=== PATIENT | female | born 2005 | race Caucasian/White ===

== ENCOUNTER 2025-01-25 04:39 | Emergency (ER) | payer OTHER, SELFPAY ==
[2025-01-25 04:43] VITALS: BP 126/82
--- NOTE | 2025-01-25 05:09 | ED.GENMED ---
History of Present Illness
<Britni Liu PA-C - Last Filed: 01/25/25 22:57>
General
Chief Complaint: Headache
Source: patient
Exam Limitations: none
Time Seen by Provider: 01/25/25 05:05
Nursing documentation reviewed up to this point in time: agreed with
History of Present Illness
History of Present Illness:
The patient is a 19-year-old female who presents with a persistent headache that started approximately 2 days ago. She describes the headache as throbbing and states that it has been continuous, with some fluctuation in intensity. The headache
briefly subsides with medications such as ibuprofen but does not completely resolve. She reports that the headache was present upon waking and describes today as particularly severe, stating it �woke me from sleep.� The patient denies any history of
similar headaches in the past. Additionally, the patient has experienced fever, with the highest recorded temperature being 101.7�F while on ibuprofen; this illness has been going on for the past week. She was seen at urgent care a week ago.
Currently, she reports a temperature of 99.7�F but no other fever. She has a new onset cough, but no associated vomiting, sore throat, or runny nose. The patient also reports mild neck pain that worsens with forward flexion. She denies dizziness,
lightheadedness, visual changes, weakness on one side of the body vs the other.
Review of Systems
<Britni Liu PA-C - Last Filed: 01/25/25 22:57>
Review of Systems
All Other Systems: ROS reviewed and negative except as documented in HPI and ROS
Phy Exam
<Britni Liu PA-C - Last Filed: 01/25/25 22:57>
Physical Exam
Physical Exam:
General: Patient is well appearing and in no acute distress; non-toxic
Skin: Warm and dry, no rashes or lesions
Head: Normocephalic, atraumatic
Eyes: Sclera non-icteric. EOMs intact.
Neck: No midline spinal tenderness to palpation, no nuchal rigidity
Cardiac: Regular rate and rhythm, no murmurs
Peripheral Vascular: No lower extremity swelling or edema
Pulm: Normal respiratory effort, no wheezes, rales, or rhonchi
Abdomen: No abdominal tenderness to palpation
Neuro: CN II-XII intact, no focal neurologic deficits. Normal finger-nose, [id number]. Negative Kernig sign, negative Brudzinski sign.
Psychiatric: Appropriate mood and affect.
Course
<Britni Liu PA-C - Last Filed: 01/25/25 22:57>
Orders/Labs/Results
Orders:
Orders
01/25/25 05:24
CT Head W/o Iv Contrast Urgent
Comment:
Reason For Exam: daily persistent headache
01/25/25 05:25
Diphenhydramine [Benadryl] 12.5 mg IV NOW STA
Metoclopramide [Reglan] 10 mg IV NOW STA
01/25/25 05:26
0.9% Sodium Chloride 500 ml [Nss] 500 ml IV BOLUS
01/25/25 05:29
Add On- LAB Urgent
Tests Added?: beta hcg qual
01/25/25 05:44
COVID-19 Antigen Urgent
Source: Nasal Swab
Complete Blood Count/With Diff Urgent
Comprehensive Metabolic Panel Urgent
HCG, Serum Qualitative Screen Urgent
Comment: ADD ON
Influenza A+B Rapid Molecular Urgent
SIRENA Source: Nasal Swab
Specimen Description:
01/25/25 05:47
Ketorolac [Toradol] 15 mg IV NOW STA
01/25/25 07:01
Magnesium Sulfate 2 Gram/50 ml [Magnesium Sulfate] 2 gram in 50 ml IV NOW
01/25/25 07:25
Valproate Sodium [Depacon] 500 mg 0.9% Sodium Chloride 50 ml [Nss] 50 ml IV NOW
01/25/25 07:30
Monotest Urgent
Abnormal Lab Results
01/25/25
05:44
MCHC 32.3 L g/dL
(33.0-37.0)
Abs Immat Gran (auto) 0.1 H 10^3/uL
(0-0.05)
Absolute Neuts (auto) 7.2 H 10^3/uL
(1.4-6.5)
Absolute Monos (auto) 1.1 H 10^3/uL
(0.1-0.6)
Lymphocytes % 19.7 L %
(20.5-51.1)
Monocytes % 10.1 H %
(1.7-9.3)
ALT 86 H U/L
(0-35)
Alkaline Phosphatase 131 H U/L
(38-126)
01/25/25 05:44
01/25/25 05:44
Vital Signs
Initial and Last Documented VS:
Initial Vital Signs
Temp Pulse Resp BP Pulse Ox
99.7 F 115 20 126/82 97
01/25/25 04:43 01/25/25 04:43 01/25/25 04:43 01/25/25 04:43 01/25/25 04:43
Last Documented Vital Signs
Temp Pulse Resp BP Pulse Ox
99.1 F 78 16 121/81 98
01/25/25 06:51 01/25/25 09:36 01/25/25 09:36 01/25/25 09:36 01/25/25 09:36
<Halima Webster MD - Last Filed: 01/25/25 07:06>
Orders/Labs/Results
Orders:
Orders
01/25/25 05:24
CT Head W/o Iv Contrast Urgent
Comment:
Reason For Exam: daily persistent headache
01/25/25 05:25
Diphenhydramine [Benadryl] 12.5 mg IV NOW STA
Metoclopramide [Reglan] 10 mg IV NOW STA
01/25/25 05:26
0.9% Sodium Chloride 500 ml [Nss] 500 ml IV BOLUS
01/25/25 05:29
Add On- LAB Urgent
Tests Added?: beta hcg qual
01/25/25 05:44
COVID-19 Antigen Urgent
Source: Nasal Swab
Complete Blood Count/With Diff Urgent
Comprehensive Metabolic Panel Urgent
HCG, Serum Qualitative Screen Urgent
Comment: ADD ON
Influenza A+B Rapid Molecular Urgent
SIRENA Source: Nasal Swab
Specimen Description:
01/25/25 05:47
Ketorolac [Toradol] 15 mg IV NOW STA
01/25/25 07:01
Magnesium Sulfate 2 Gram/50 ml [Magnesium Sulfate] 2 gram in 50 ml IV NOW
01/25/25 07:25
Valproate Sodium [Depacon] 500 mg 0.9% Sodium Chloride 50 ml [Nss] 50 ml IV NOW
01/25/25 07:30
Monotest Urgent
Abnormal Lab Results
01/25/25
05:44
MCHC 32.3 L g/dL
(33.0-37.0)
Abs Immat Gran (auto) 0.1 H 10^3/uL
(0-0.05)
Absolute Neuts (auto) 7.2 H 10^3/uL
(1.4-6.5)
Absolute Monos (auto) 1.1 H 10^3/uL
(0.1-0.6)
Lymphocytes % 19.7 L %
(20.5-51.1)
Monocytes % 10.1 H %
(1.7-9.3)
ALT 86 H U/L
(0-35)
Alkaline Phosphatase 131 H U/L
(38-126)
01/25/25 05:44
01/25/25 05:44
Vital Signs
Initial and Last Documented VS:
Initial Vital Signs
Temp Pulse Resp BP Pulse Ox
99.7 F 115 20 126/82 97
01/25/25 04:43 01/25/25 04:43 01/25/25 04:43 01/25/25 04:43 01/25/25 04:43
Last Documented Vital Signs
Temp Pulse Resp BP Pulse Ox
99.1 F 78 16 121/81 98
01/25/25 06:51 01/25/25 09:36 01/25/25 09:36 01/25/25 09:36 01/25/25 09:36
<Blas Guzman PA-C - Last Filed: 01/25/25 12:35>
Orders/Labs/Results
Orders:
Orders
01/25/25 05:24
CT Head W/o Iv Contrast Urgent
Comment:
Reason For Exam: daily persistent headache
01/25/25 05:25
Diphenhydramine [Benadryl] 12.5 mg IV NOW STA
Metoclopramide [Reglan] 10 mg IV NOW STA
01/25/25 05:26
0.9% Sodium Chloride 500 ml [Nss] 500 ml IV BOLUS
01/25/25 05:29
Add On- LAB Urgent
Tests Added?: beta hcg qual
01/25/25 05:44
COVID-19 Antigen Urgent
Source: Nasal Swab
Complete Blood Count/With Diff Urgent
Comprehensive Metabolic Panel Urgent
HCG, Serum Qualitative Screen Urgent
Comment: ADD ON
Influenza A+B Rapid Molecular Urgent
SIRENA Source: Nasal Swab
Specimen Description:
01/25/25 05:47
Ketorolac [Toradol] 15 mg IV NOW STA
01/25/25 07:01
Magnesium Sulfate 2 Gram/50 ml [Magnesium Sulfate] 2 gram in 50 ml IV NOW
01/25/25 07:25
Valproate Sodium [Depacon] 500 mg 0.9% Sodium Chloride 50 ml [Nss] 50 ml IV NOW
01/25/25 07:30
Monotest Urgent
Abnormal Lab Results
01/25/25
05:44
MCHC 32.3 L g/dL
(33.0-37.0)
Abs Immat Gran (auto) 0.1 H 10^3/uL
(0-0.05)
Absolute Neuts (auto) 7.2 H 10^3/uL
(1.4-6.5)
Absolute Monos (auto) 1.1 H 10^3/uL
(0.1-0.6)
Lymphocytes % 19.7 L %
(20.5-51.1)
Monocytes % 10.1 H %
(1.7-9.3)
ALT 86 H U/L
(0-35)
Alkaline Phosphatase 131 H U/L
(38-126)
01/25/25 05:44
01/25/25 05:44
Vital Signs
Initial and Last Documented VS:
Initial Vital Signs
Temp Pulse Resp BP Pulse Ox
99.7 F 115 20 126/82 97
01/25/25 04:43 01/25/25 04:43 01/25/25 04:43 01/25/25 04:43 01/25/25 04:43
Last Documented Vital Signs
Temp Pulse Resp BP Pulse Ox
99.1 F 78 16 121/81 98
01/25/25 06:51 01/25/25 09:36 01/25/25 09:36 01/25/25 09:36 01/25/25 09:36
Magedlt;Britni Liu PA-C - Last Filed: 01/25/25 22:57>
MDM/Problems Addressed
Differential Diagnosis Includes:
Differential includes post viral syndrome, migraine headache, meningitis, mononucleosis, tension headache
MDM/Problems Addressed:
19-year-old female presents to the ER today with concerns of a headache for the past 2 days and fevers for the past week. She reports that she started to have a daily fever associated with some coughing but no other symptoms. She saw urgent care
and was diagnosed with a virus and discharged. She has been doing ibuprofen and acetaminophen to manage her fever. She reports that nothing is helping a headache. On arrival to the ER, she is afebrile. She is well-appearing. She has no focal
neural deficits. No meningismus. Lab work unremarkable. CT scan of the head negative. She had no improvement with migraine cocktail. Spoke to patient regarding possible LP to evaluate for pharyngitis, will hold off at this time. Will trial
magnesium and valproic acid for headache. Case signed out to Dontae XAVIER pending reassessment.
Chronic conditions affecting care:
N/A
<Britni Liu PA-C - Last Filed: 01/25/25 22:57>
*Pulse Oximetry
SaO2: 97
Oxygen Mode of Delivery: Room air
<Blas Guzman PA-C - Last Filed: 01/25/25 12:35>
*Pulse Oximetry
Patient hypoxic: no
*Critical Care Note
Total Time (30-74mins, 75-104mins- exclusive of procedures): Not Applicable
<Blas Guzman PA-C - Last Filed: 01/25/25 12:35>
Update Note
Update Note:
Assumed care of patient from Britni Liu PA-C at shift change. Patient with viral throat leading to severe headache over the weekend. Low clinical suspicion for meningitis based on exam, workup unrevealing thus far. No improvement with
Toradol and Reglan. Will be administered magnesium and IV valproate.
0920: Patient reassessed after meds placed complaining of 7 out of 10 headache. Offered admission for continued headache treatment but she declines. She has at this time free unrestricted neck range of motion and no signs of meningitis clinically.
Will prescribe supportive care and discharge home
ED Attending Note
<Britni Liu PA-C - Last Filed: 01/25/25 22:57>
-
Portions of this chart may have been created with voice recognition software.� Occasional wrong word or��sound alike� substitutions may have occurred due to the inherent limitations of voice recognition software.
<Halima Webster MD - Last Filed: 01/25/25 07:06>
ED Attending Note
Patient seen and examined by attending physician: Yes
I performed the substantive portion of visit, reviewed & personally made and approve the management plan that is documented in note by myself or MYRANDA.: Yes
ED Attending Note:
Patient appears nontoxic and well. no photophobia. conversational. moves neck around freely. no meningsmus
will try valproic acid and mag for headache relief
Discharge Plan
Departure
Patient Disposition: Home (Routine Discharge)
Date of Disposition: 01/25/25
Time of Disposition: 09:
Patient with high blood pressure during this ER visit?: Yes
Condition: Good
Discharge Problem:
Post viral syndrome, Headache
Instructions: Headache, Adult (DC), BLOOD PRESSURE
Prescriptions:
New
ketorolac 10 mg tablet
10 mg PO Q8H PRN (Reason: headache) Qty: 12 0RF
Referrals:
Mary Pond MD [Family Provider, Family Practice]
Activity Restrictions/Additional Instructions:
Please follow-up with your primary care provider.
Do not combine the ketorolac I prescribed you with over the counter ibuprofen (Motrin, Advil) however you may take acetaminophen (tylenol).
PLEASE RETURN TO THE ER SHOULD YOU DEVELOP CHEST PAIN, SHORTNESS OF BREATH, INTRACTABLE NAUSEA OR VOMITING, NECK PAIN, DIZZINESS, RASH, OR ANY OTHER SIGNS OR SYMPTOMS WORRISOME TO YOU.
Interventions
Interventions:
*Risk Screen - Suicide Last Done: 01/25/25 04:41
*General Assessment Last Done: 01/25/25 04:41
*Neglect/Abuse Screening Last Done: 01/25/25 07:39
*ED- Fall Risk Assessment Last Done: 01/25/25 05:48
*ED COVID-19 Vaccine History Last Done: 01/25/25 05:48
*ED Influenza Vaccine History Last Done: 01/25/25 05:48
*Nursing Disposition Last Done: 01/25/25 09:36
ED- Neurological Assessment Last Done: 01/25/25 05:33
Discharge Date and Time
Discharge Date/Time: 01/25/25 09:37
Print Language: ICELANDIC
[2025-01-25 05:28] VITALS: BP 111/65
[2025-01-25] MEDS: BENADRYL 12.5 MG IV (05:41)
[2025-01-25] MEDS: NSS 500 IV (05:41)
[2025-01-25] MEDS: REGLAN 10 MG IV (05:42)
[2025-01-25 05:48] VITALS: BMI 25.1
[2025-01-25] MEDS: TORADOL 15 MG IV (05:50)
[2025-01-25 05:59] LABS: Hematocrit 37.5 % (37.0-47.0); Hemoglobin 12.1 g/dL (12.0-16.0); Mean Corp Hgb Conc. 32.3 g/dL (33.0-37.0); Mean Corpuscular Volume 84.1 fL (81.0-99.0); Nucleated Red Blood Cells % 0 %; Platelet Count 347 10^3/uL (130-400); Red Cell Dist. Width 14.0 % (11.5-14.5)
[2025-01-25 06:09] LABS: HCG, Serum Qualitative Screen Negative
[2025-01-25 06:10] LABS: COVID-19 Antigen Negative (Negative)
[2025-01-25 06:12] LABS: ALT (SGPT) 86 U/L (0-35); AST (SGOT) 34 U/L (14-36); Albumin 4.4 g/dl (3.5-5.0); Alkaline Phosphatase 131 U/L (38-126); Blood Urea Nitrogen 14 mg/dl (7-17); Calcium 9.1 mg/dl (8.4-10.2); Carbon Dioxide 24 mmol/L (22-30); Chloride 106 mmol/L (98-107); Estimated Creatinine Clearance 95 ml/min; Glucose 99 mg/dl (70-99); Potassium 3.9 mmol/L (3.5-5.1); Sodium 140 mmol/L (135-145); Total Protein 7.8 g/dl (6.3-8.2); eGFR > 60.00
[2025-01-25 06:51] VITALS: BP 111/69
[2025-01-25] MEDS: MAGNESIUM SULFATE 50 IV (07:26)
[2025-01-25] MEDS: DEPACON 55 MG IV (08:06)
[2025-01-25 09:36] VITALS: BP 121/81
== END 2025-01-25 09:37 | disposition home or self-care (01) ==
LOC: EMR 04:39
PROVIDERS: Physician Assistant; EMERGENCY PHYSICIAN Emergency Medicine; FAMILY PHYSICIAN Family Medicine
DX: G93.31 Postviral fatigue syndrome (principal); R03.0 Elevated blood-pressure reading, without diagnosis of hypertension
CPT/HCPCS: 99284; 96365; 96375 ×4; 96361; 70450; 80053; 84703; 85025; 86308; 87502; 87811

== ENCOUNTER 2025-01-26 18:33 | Inpatient (IN) | payer OTHER, SELFPAY ==
[2025-01-26] VITALS (11 sets, daily range): BP systolic 110–138; BP diastolic 68–90; BMI 24.6
--- NOTE | 2025-01-26 09:29 | ED.GENMED ---
History of Present Illness
<Nhi Wing MD, Resident - Last Filed: 01/26/25 19:01>
General
Chief Complaint: Fever
Source: patient
Exam Limitations: none
Time Seen by Provider: 01/26/25 09:03
History of Present Illness
History of Present Illness:
27-year-old female with no significant past medical history back to the ER for ongoing fevers and headache. She was seen yesterday for a headache and fever that started last SaturdayJan 17. She started with generalized weakness, achiness, diffuse
joint pain, and fever. She later developed a headache that got persistently worse and became constant. It waxed and waned in severity but consistently present. She described the pain an 8-9/10 in severity at its worst associated with on and off left
sided neck pain. It is worse with flexion and in certain positions. It slightly improves with Tylenol and ibuprofen, but marginally. She takes it on a regular basis to prevent worsening of symptoms. She has no history of migraines or headaches and
has not had anything similar. She endorses some slight nausea when the headaches get severe, but no vomiting. She does endorse some tinnitus and now pain behind her eyes in the last two days. There is some discomfort moving her eyes quickly. She
denies any chest pain, heart palpitations, SOB, runny nose, sore throat, sneezing, rash, focal weakness. Last dose of ketorolac was 3am this morning because her headache woke her up from sleep. She stated she was febrile at that time. She went to
back to bed and came back to ED around 7am this morning.
In the ED on 01/25, CBC, non-con head CT, flu, covid all unremarkable for acute cause. She was provided magnesium and valproic acid which did not help significantly. She was sent home with ketorolac which also did not help.
Of note, she hikes occasionally but no known tick bite or rash recently, she has a cat at home, [place] her family in October. She was 'eaten up' by mosquitos 2 weeks ago.' She has no family history of
migraine disorders.
Past History
<Nhi Wing MD, Resident - Last Filed: 01/26/25 19:01>
Past History
ED Past Medical History: Other (MEG)
ED Past Surgical History: None
Social History
Tobacco: Non-smoker
Alcohol: None
Drug: None
Personal: Single
Family History
Family History: Diabetes
Review of Systems
<Nhi Wing MD, Resident - Last Filed: 01/26/25 19:01>
Review of Systems
Allergies reviewed?: Yes
Constitutional: Reports fever, fatigue, sleep disturbance and chills
EENT: Reports no symptoms
Respiratory: Reports cough (slight, dry)
Cardiac: Reports no symptoms
ABD/GI: Reports nausea (slight with intense headache )
: Reports no symptoms
Musculoskeletal: Reports no symptoms
Skin: Reports no symptoms
Neurological: Reports headache
Psychiatric: Reports no symptoms
Phy Exam
<Nhi Wing MD, Resident - Last Filed: 01/26/25 19:01>
Physical Exam
Physical Exam:
General: uncomfortable, but not acutely ill
Cardiac: Regular S1, S2, no murmurs
Respiratory: Clear breath sounds bilaterally
Abdominal: Non-tender, non-distended, normal BSx4
Extremitis: No edema or erythema
Neurological: CNII-XII intact, muscule strength 5/5 bilaterally, sensation intact bilaterally, mild pain with flexion of neck, mild pain with flexion of hip and flexion of knee, mild tenderness with palpation of neck.
Psych: Calm
Skin: No rashes seen
Course
<Nhi Wing MD, Resident - Last Filed: 01/26/25 19:01>
Orders/Labs/Results
Orders:
Orders
01/26/25 10:43
NEUROLOGY CONSULT Urgent
Consulting Provider: Roland Lobato
Was physician already notified: Yes
Reason for consult: fever/headache
01/26/25 10:51
Complete Blood Count/With Diff Urgent
Comprehensive Metabolic Panel Urgent
Ehrlichia/Anaplasma by PCR [S] Urgent
Lyme Progressive Urgent
Blood Culture Q30M
SIRENA Source: Blood/Venous
Specimen Description:
Blood Parasites Urgent
SIRENA Source: Blood/Venous
Specimen Description:
01/26/25 12:09
IRAD Cytology Routine
Date Specimen was Collected: 01/26/25
Time Specimen was Collected: 13:57
Source: CSF
Clinical Impression: Lymphoma
01/26/25 13:59
CSF Cell Count Urgent
Date Specimen was Collected: 01/26/25
Time Specimen was Collected: 13:56
CSF Tube Number: 3
CSF Cell Count X Urgent
Date Specimen was Collected: 01/26/25
Time Specimen was Collected: 13:56
CSF Tube Number: 4
Blood Culture Q30M
SIRENA Source: Blood/Venous
Specimen Description:
CSF Culture with Gram Stain Urgent
SIRENA Source: Csf
Specimen Description:
Date Specimen was Collected: 01/26/25
Time Specimen was Collected: 13:56
# of Tube: 3
01/26/25 14:00
CRP [C-Reactive Protein] Routine
Comment: May add to blood in lab
Erythrocyte Sed Rate Routine
Comment: may add to blood in lab
Ferritin Routine
Folate Routine
Comment: May add to blood in lab
Spinal Fluid Glucose Urgent
Date Specimen was Collected: 01/26/25
Time Specimen was Collected: 13:57
CSF Tube Number: 2
Spinal Fluid Protein Urgent
Date Specimen was Collected: 01/26/25
Time Specimen was Collected: 13:57
CSF Tube Number: 2
Vitamin B12 Routine
Comment: May add to blood in lab or draw as routine
Meningitis Panel, CSF by PCR Urgent
SIRENA Source: Csf
Specimen Description:
01/26/25 14:01
CSF VDRL Reflex To Titer [S] Urgent
Date Specimen was Collected: 01/26/25
Time Specimen was Collected: 13:56
CSF Tube Number: 4
Cryptococcal Antigen, CSF [S] Urgent
Date Specimen was Collected: 01/26/25
Time Specimen was Collected: 13:56
Comment: tube #4
Lyme PCR, DNA [S] Urgent
Myelin Basic Protein, CSF [S] Urgent
Date Specimen was Collected: 01/26/25
Time Specimen was Collected: 13:57
Oligoclonal Band Profile [S] Urgent
Date Specimen was Collected: 01/26/25
Time Specimen was Collected: 13:57
Fungus Culture Urgent
SIRENA Source: Csf
Specimen Description:
Date Specimen was Collected: 01/26/25
Time Specimen was Collected: 13:57
01/26/25 14:02
Acid Fast Culture & Smear Urgent
SIRENA Source: Csf
Specimen Description:
Date Specimen was Collected: 01/26/25
Time Specimen was Collected: 13:56
Tube Number: 1
01/26/25 Dinner
Regular
At Your Request: Full Participation
Does patient need a safe tray?: No
01/26/25 18:05
CefTRIAXone [Rocephin] 2,000 mg IV NOW STA
01/26/25 18:24
Admit/Transfer Patient As Directed
Co-Sign Provider:
Level of Care: Inpatient admission
Assign to:: Medical/Surgical
Physician / Group: jennifer
Diagnosis: aspetic meningits
Reason for Hospitalization: aseptic meningitis
Expected length of stay greater than two midnights?: Yes
ELOS- Estimated Length of Stay in days: 2
I certify the patient meets the requirements for IP care: Yes
01/26/25 18:25
Code Status As Directed
Resuscitation Status: Full Code
PRN Pain Medication Management As Directed
May give lesser potent ordered pain med per pt: Yes
preference::
Protocol:: Medication orders for pain may be administered in a
manner that supports deferring to patient preference
when the pt is:
- Requesting an ordered lesser potent pain medication.
Least to most potent pain medications are defined
as: acetaminophen < NSAID < tramadol < opioids
(morphine, oxycodone, hydromorphone).
- Requesting a lesser dose of the same medication IF
ORDERED.
- Requesting a less intrusive route of administration
if both routes are prescribed by the provider (PO <
IV).
01/26/25 18:27
Vancomycin 1 Gram/200 ml [Vancocin] 1 gram in 200 ml IV NOW
01/26/25 18:30
CR Chest - 2 Views Urgent
Comment:
Reason For Exam: cough
01/26/25 20:00
Ampicillin/Sulbactam 3 G [Unasyn] 3 gm 0.9% Sodium Chloride 100 ml [Nss] 100 ml IV Q6H
01/26/25 21:57
0.9% Sodium Chloride 1000 ml [Nss] 1,000 ml IV 80 mls/hr
Acetaminophen [Tylenol] 650 mg PO Q4HPRN PRN
Heparin 5,000 units SC Q12
VANCOMYCIN Pharmacy to Dose [VANCOCIN Pharmacy to Dose] 1 each Pharmacy To Prepare [Call Pharmacy To Prepare] 0 ml IV PER PROTOCOL
01/26/25 21:57
INFECTIOUS DISEASE CONSULT Routine
Consulting Provider: Beba Sanchez
Was physician already notified: Yes
Activity As Directed
Activity Level: As Tolerated
Vital Signs As Directed
Frequency: Per unit guidelines
DX Deep Vein Thrombosis Video Routine
01/27/25 07:50
Complete Blood Count/With Diff IN AM
Comprehensive Metabolic Panel IN AM
Abnormal Lab Results
01/26/25 01/26/25 01/26/25
10:51 13:59 13:59
RBC 4.18 L 10^6/uL
(4.20-5.40)
Hgb 11.3 L g/dL
(12.0-16.0)
Hct 35.3 L %
(37.0-47.0)
MCHC 32.0 L g/dL
(33.0-37.0)
ESR
ALT 58 H U/L
(0-35)
C-Reactive Protein
Folate
CSF WBC 215 H* mm^3 714 H* mm^3
(0-5) (0-5)
CSF Glucose
01/26/25
14:00
RBC
Hgb
Hct
MCHC
ESR 67 H mm/hour
(0-20)
ALT
C-Reactive Protein 44.50 H mg/L
(0.0-10.00)
Folate > 20.0 H ng/ml
(2.76-20)
CSF WBC
CSF Glucose 39 L mg/dl
(40-70)
01/26/25 10:51
01/26/25 10:51
Vital Signs
Initial and Last Documented VS:
Initial Vital Signs
Temp Pulse Resp BP Pulse Ox
98.4 F 94 18 132/88 99
01/26/25 08:45 01/26/25 08:45 01/26/25 08:45 01/26/25 08:45 01/26/25 08:45
Last Documented Vital Signs
Temp Pulse Resp BP Pulse Ox
98.6 F 111 16 137/86 99
01/27/25 08:00 01/27/25 08:00 01/27/25 08:00 01/27/25 08:00 01/27/25 08:00
<Amadou Blanton MD - Last Filed: 01/27/25 15:15>
Orders/Labs/Results
Orders:
Orders
01/26/25 10:43
NEUROLOGY CONSULT Urgent
Consulting Provider: Roland Lobato
Was physician already notified: Yes
Reason for consult: fever/headache
01/26/25 10:51
Complete Blood Count/With Diff Urgent
Comprehensive Metabolic Panel Urgent
Ehrlichia/Anaplasma by PCR [S] Urgent
Lyme Progressive Urgent
Blood Culture Q30M
SIRENA Source: Blood/Venous
Specimen Description:
Blood Parasites Urgent
SIRENA Source: Blood/Venous
Specimen Description:
01/26/25 12:09
IRAD Cytology Routine
Date Specimen was Collected: 01/26/25
Time Specimen was Collected: 13:57
Source: CSF
Clinical Impression: Lymphoma
01/26/25 13:59
CSF Cell Count Urgent
Date Specimen was Collected: 01/26/25
Time Specimen was Collected: 13:56
CSF Tube Number: 3
CSF Cell Count X Urgent
Date Specimen was Collected: 01/26/25
Time Specimen was Collected: 13:56
CSF Tube Number: 4
Blood Culture Q30M
SIRENA Source: Blood/Venous
Specimen Description:
CSF Culture with Gram Stain Urgent
SIRENA Source: Csf
Specimen Description:
Date Specimen was Collected: 01/26/25
Time Specimen was Collected: 13:56
# of Tube: 3
01/26/25 14:00
CRP [C-Reactive Protein] Routine
Comment: May add to blood in lab
Erythrocyte Sed Rate Routine
Comment: may add to blood in lab
Ferritin Routine
Folate Routine
Comment: May add to blood in lab
Spinal Fluid Glucose Urgent
Date Specimen was Collected: 01/26/25
Time Specimen was Collected: 13:57
CSF Tube Number: 2
Spinal Fluid Protein Urgent
Date Specimen was Collected: 01/26/25
Time Specimen was Collected: 13:57
CSF Tube Number: 2
Vitamin B12 Routine
Comment: May add to blood in lab or draw as routine
Meningitis Panel, CSF by PCR Urgent
SIRENA Source: Csf
Specimen Description:
01/26/25 14:01
CSF VDRL Reflex To Titer [S] Urgent
Date Specimen was Collected: 01/26/25
Time Specimen was Collected: 13:56
CSF Tube Number: 4
Cryptococcal Antigen, CSF [S] Urgent
Date Specimen was Collected: 01/26/25
Time Specimen was Collected: 13:56
Comment: tube #4
Lyme PCR, DNA [S] Urgent
Myelin Basic Protein, CSF [S] Urgent
Date Specimen was Collected: 01/26/25
Time Specimen was Collected: 13:57
Oligoclonal Band Profile [S] Urgent
Date Specimen was Collected: 01/26/25
Time Specimen was Collected: 13:57
Fungus Culture Urgent
SIRENA Source: Csf
Specimen Description:
Date Specimen was Collected: 01/26/25
Time Specimen was Collected: 13:57
01/26/25 14:02
Acid Fast Culture & Smear Urgent
SIRENA Source: Csf
Specimen Description:
Date Specimen was Collected: 01/26/25
Time Specimen was Collected: 13:56
Tube Number: 1
01/26/25 Dinner
Regular
At Your Request: Full Participation
Does patient need a safe tray?: No
01/26/25 18:05
CefTRIAXone [Rocephin] 2,000 mg IV NOW STA
01/26/25 18:24
Admit/Transfer Patient As Directed
Co-Sign Provider:
Level of Care: Inpatient admission
Assign to:: Medical/Surgical
Physician / Group: jennifer
Diagnosis: aspetic meningits
Reason for Hospitalization: aseptic meningitis
Expected length of stay greater than two midnights?: Yes
ELOS- Estimated Length of Stay in days: 2
I certify the patient meets the requirements for IP care: Yes
01/26/25 18:25
Code Status As Directed
Resuscitation Status: Full Code
PRN Pain Medication Management As Directed
May give lesser potent ordered pain med per pt: Yes
preference::
Protocol:: Medication orders for pain may be administered in a
manner that supports deferring to patient preference
when the pt is:
- Requesting an ordered lesser potent pain medication.
Least to most potent pain medications are defined
as: acetaminophen < NSAID < tramadol < opioids
(morphine, oxycodone, hydromorphone).
- Requesting a lesser dose of the same medication IF
ORDERED.
- Requesting a less intrusive route of administration
if both routes are prescribed by the provider (PO <
IV).
01/26/25 18:27
Vancomycin 1 Gram/200 ml [Vancocin] 1 gram in 200 ml IV NOW
01/26/25 18:30
CR Chest - 2 Views Urgent
Comment:
Reason For Exam: cough
01/26/25 20:00
Ampicillin/Sulbactam 3 G [Unasyn] 3 gm 0.9% Sodium Chloride 100 ml [Nss] 100 ml IV Q6H
01/26/25 21:57
0.9% Sodium Chloride 1000 ml [Nss] 1,000 ml IV 80 mls/hr
Acetaminophen [Tylenol] 650 mg PO Q4HPRN PRN
Heparin 5,000 units SC Q12
VANCOMYCIN Pharmacy to Dose [VANCOCIN Pharmacy to Dose] 1 each Pharmacy To Prepare [Call Pharmacy To Prepare] 0 ml IV PER PROTOCOL
01/26/25 21:57
INFECTIOUS DISEASE CONSULT Routine
Consulting Provider: Beba Snachez
Was physician already notified: Yes
Activity As Directed
Activity Level: As Tolerated
Vital Signs As Directed
Frequency: Per unit guidelines
DX Deep Vein Thrombosis Video Routine
01/27/25 07:50
Complete Blood Count/With Diff IN AM
Comprehensive Metabolic Panel IN AM
Abnormal Lab Results
01/26/25 01/26/25 01/26/25
10:51 13:59 13:59
RBC 4.18 L 10^6/uL
(4.20-5.40)
Hgb 11.3 L g/dL
(12.0-16.0)
Hct 35.3 L %
(37.0-47.0)
MCHC 32.0 L g/dL
(33.0-37.0)
ESR
ALT 58 H U/L
(0-35)
C-Reactive Protein
Folate
CSF WBC 215 H* mm^3 714 H* mm^3
(0-5) (0-5)
CSF Glucose
01/26/25
14:00
RBC
Hgb
Hct
MCHC
ESR 67 H mm/hour
(0-20)
ALT
C-Reactive Protein 44.50 H mg/L
(0.0-10.00)
Folate > 20.0 H ng/ml
(2.76-20)
CSF WBC
CSF Glucose 39 L mg/dl
(40-70)
01/26/25 10:51
01/26/25 10:51
Vital Signs
Initial and Last Documented VS:
Initial Vital Signs
Temp Pulse Resp BP Pulse Ox
98.4 F 94 18 132/88 99
01/26/25 08:45 01/26/25 08:45 01/26/25 08:45 01/26/25 08:45 01/26/25 08:45
Last Documented Vital Signs
Temp Pulse Resp BP Pulse Ox
98.6 F 111 16 137/86 99
01/27/25 08:00 01/27/25 08:00 01/27/25 08:00 01/27/25 08:00 01/27/25 08:00
<Twin Segundo, DO - Last Filed: 01/26/25 18:07>
Orders/Labs/Results
Orders:
Orders
01/26/25 10:43
NEUROLOGY CONSULT Urgent
Consulting Provider: Roland Lobato
Was physician already notified: Yes
Reason for consult: fever/headache
01/26/25 10:51
Complete Blood Count/With Diff Urgent
Comprehensive Metabolic Panel Urgent
Ehrlichia/Anaplasma by PCR [S] Urgent
Lyme Progressive Urgent
Blood Culture Q30M
SIRENA Source: Blood/Venous
Specimen Description:
Blood Parasites Urgent
SIRENA Source: Blood/Venous
Specimen Description:
01/26/25 12:09
IRAD Cytology Routine
Date Specimen was Collected: 01/26/25
Time Specimen was Collected: 13:57
Source: CSF
Clinical Impression: Lymphoma
01/26/25 13:59
CSF Cell Count Urgent
Date Specimen was Collected: 01/26/25
Time Specimen was Collected: 13:56
CSF Tube Number: 3
CSF Cell Count X Urgent
Date Specimen was Collected: 01/26/25
Time Specimen was Collected: 13:56
CSF Tube Number: 4
Blood Culture Q30M
SIRENA Source: Blood/Venous
Specimen Description:
CSF Culture with Gram Stain Urgent
SIRENA Source: Csf
Specimen Description:
Date Specimen was Collected: 01/26/25
Time Specimen was Collected: 13:56
# of Tube: 3
01/26/25 14:00
CRP [C-Reactive Protein] Routine
Comment: May add to blood in lab
Erythrocyte Sed Rate Routine
Comment: may add to blood in lab
Ferritin Routine
Folate Routine
Comment: May add to blood in lab
Spinal Fluid Glucose Urgent
Date Specimen was Collected: 01/26/25
Time Specimen was Collected: 13:57
CSF Tube Number: 2
Spinal Fluid Protein Urgent
Date Specimen was Collected: 01/26/25
Time Specimen was Collected: 13:57
CSF Tube Number: 2
Vitamin B12 Routine
Comment: May add to blood in lab or draw as routine
Meningitis Panel, CSF by PCR Urgent
SIRENA Source: Csf
Specimen Description:
01/26/25 14:01
CSF VDRL Reflex To Titer [S] Urgent
Date Specimen was Collected: 01/26/25
Time Specimen was Collected: 13:56
CSF Tube Number: 4
Cryptococcal Antigen, CSF [S] Urgent
Date Specimen was Collected: 01/26/25
Time Specimen was Collected: 13:56
Comment: tube #4
Lyme PCR, DNA [S] Urgent
Myelin Basic Protein, CSF [S] Urgent
Date Specimen was Collected: 01/26/25
Time Specimen was Collected: 13:57
Oligoclonal Band Profile [S] Urgent
Date Specimen was Collected: 01/26/25
Time Specimen was Collected: 13:57
Fungus Culture Urgent
SIRENA Source: Csf
Specimen Description:
Date Specimen was Collected: 01/26/25
Time Specimen was Collected: 13:57
01/26/25 14:02
Acid Fast Culture & Smear Urgent
SIRENA Source: Csf
Specimen Description:
Date Specimen was Collected: 01/26/25
Time Specimen was Collected: 13:56
Tube Number: 1
01/26/25 Dinner
Regular
At Your Request: Full Participation
Does patient need a safe tray?: No
01/26/25 18:05
CefTRIAXone [Rocephin] 2,000 mg IV NOW STA
01/26/25 18:24
Admit/Transfer Patient As Directed
Co-Sign Provider:
Level of Care: Inpatient admission
Assign to:: Medical/Surgical
Physician / Group: jennifer
Diagnosis: aspetic meningits
Reason for Hospitalization: aseptic meningitis
Expected length of stay greater than two midnights?: Yes
ELOS- Estimated Length of Stay in days: 2
I certify the patient meets the requirements for IP care: Yes
01/26/25 18:25
Code Status As Directed
Resuscitation Status: Full Code
PRN Pain Medication Management As Directed
May give lesser potent ordered pain med per pt: Yes
preference::
Protocol:: Medication orders for pain may be administered in a
manner that supports deferring to patient preference
when the pt is:
- Requesting an ordered lesser potent pain medication.
Least to most potent pain medications are defined
as: acetaminophen < NSAID < tramadol < opioids
(morphine, oxycodone, hydromorphone).
- Requesting a lesser dose of the same medication IF
ORDERED.
- Requesting a less intrusive route of administration
if both routes are prescribed by the provider (PO <
IV).
01/26/25 18:27
Vancomycin 1 Gram/200 ml [Vancocin] 1 gram in 200 ml IV NOW
01/26/25 18:30
CR Chest - 2 Views Urgent
Comment:
Reason For Exam: cough
01/26/25 20:00
Ampicillin/Sulbactam 3 G [Unasyn] 3 gm 0.9% Sodium Chloride 100 ml [Nss] 100 ml IV Q6H
01/26/25 21:57
0.9% Sodium Chloride 1000 ml [Nss] 1,000 ml IV 80 mls/hr
Acetaminophen [Tylenol] 650 mg PO Q4HPRN PRN
Heparin 5,000 units SC Q12
VANCOMYCIN Pharmacy to Dose [VANCOCIN Pharmacy to Dose] 1 each Pharmacy To Prepare [Call Pharmacy To Prepare] 0 ml IV PER PROTOCOL
01/26/25 21:57
INFECTIOUS DISEASE CONSULT Routine
Consulting Provider: Beba Sanchez
Was physician already notified: Yes
Activity As Directed
Activity Level: As Tolerated
Vital Signs As Directed
Frequency: Per unit guidelines
DX Deep Vein Thrombosis Video Routine
01/27/25 07:50
Complete Blood Count/With Diff IN AM
Comprehensive Metabolic Panel IN AM
Abnormal Lab Results
01/26/25 01/26/25 01/26/25
10:51 13:59 13:59
RBC 4.18 L 10^6/uL
(4.20-5.40)
Hgb 11.3 L g/dL
(12.0-16.0)
Hct 35.3 L %
(37.0-47.0)
MCHC 32.0 L g/dL
(33.0-37.0)
ESR
ALT 58 H U/L
(0-35)
C-Reactive Protein
Folate
CSF WBC 215 H* mm^3 714 H* mm^3
(0-5) (0-5)
CSF Glucose
01/26/25
14:00
RBC
Hgb
Hct
MCHC
ESR 67 H mm/hour
(0-20)
ALT
C-Reactive Protein 44.50 H mg/L
(0.0-10.00)
Folate > 20.0 H ng/ml
(2.76-20)
CSF WBC
CSF Glucose 39 L mg/dl
(40-70)
01/26/25 10:51
01/26/25 10:51
Vital Signs
Initial and Last Documented VS:
Initial Vital Signs
Temp Pulse Resp BP Pulse Ox
98.4 F 94 18 132/88 99
01/26/25 08:45 01/26/25 08:45 01/26/25 08:45 01/26/25 08:45 01/26/25 08:45
Last Documented Vital Signs
Temp Pulse Resp BP Pulse Ox
98.6 F 111 16 137/86 99
01/27/25 08:00 01/27/25 08:00 01/27/25 08:00 01/27/25 08:00 01/27/25 08:00
Procedures
<Amadou Blanton MD - Last Filed: 01/27/25 15:15>
Lumbar Puncture
Indication for procedure:: headache/fever
Procedure completed by: Amadou Blanton M.D.
Consent form signed: Yes
Anesthesia/sedation: 1% Lidocaine
Preparation: cleaned with Betadine
Position: sitting
Needle Size: 18 gauge
Needle Type: Lumbar Needle
Number of attempts: 1
Dressing applied to puncture site: bandaid
Complications: none
<Nhi Wing MD, Resident - Last Filed: 01/26/25 19:01>
MDM/Problems Addressed
Differential Diagnosis Includes:
Viral meningitis, viral encephalitics, bacterial meningitis, URI, lyme disease, tick borne illness, migraine,
MDM/Problems Addressed:
Given head CT yesterday and routine blood work was unremarkable, will consult neurology for further eval for possible LP. Tick borne panel pending.
<Nhi Wing MD, Resident - Last Filed: 01/26/25 19:01>
*Pulse Oximetry
SaO2: 99
Oxygen Mode of Delivery: Room air
Patient hypoxic: no
Data Reviewed
Review of Other/Old Records Reveals: Labs (01/25/25 ALT 86, alk phos 131, otherwise unremarkable) and Radiology Studies (non-con head CT 01/25/25 no acute intracranial abnormality. )
Source: patient
<Twin Segundo DO - Last Filed: 01/26/25 18:07>
*Critical Care Note
Total Time (30-74mins, 75-104mins- exclusive of procedures): Not Applicable
<Twin Segundo DO - Last Filed: 01/26/25 18:07>
Update Note
Update Note:
White count normal
However 215 and 714 white cells in spinal fluid, sed rate 67, CRP 45,
Discussed with Dr. Lobato and also with Dr. Sanchez
Dr. Sanchez agrees with keeping the patient for further observation
She agrees with antibiotics but recommends to hold off on acyclovir
I spoke to the patient's aunt at bedside
ED Attending Note
<Nhi Wing MD, Resident - Last Filed: 01/26/25 19:01>
-
Portions of this chart may have been created with voice recognition software.� Occasional wrong word or��sound alike� substitutions may have occurred due to the inherent limitations of voice recognition software.
<Amadou Blanton MD - Last Filed: 01/27/25 15:15>
ED Attending Note
Patient seen and examined by attending physician: Yes
ED Attending Note:
Pt without any sig. past medical history, presents to ED secondary to persistent headache with fever over the past 9 days. Pt was seen in ED yesterday and discharged home. Denies photophobia. Denies nausea/vomiting. Denies dizziness. Denies loss of
sensation/weakness. Denies coughing. Denies sore throat. Denies ear pain. Denies diarrhea. Denies rash. Denies loss of appetite. Denies recent travel. Denies sick contact. Pt does report multiple mosquito bites in the recent weeks. Last Advil taken
3hrs prior to arrival in ED
General: well appearing. no distress. afebrile.
Heent: nc/at. eomi
Neck: normal range of motion. negative Kernig/Brudzinski sign
Heart: rrr. no murmur
Lungs: cta
Abd: soft and nontender
Neuro: aao x 3. no focal neurological deficit
Skin: no rash.
Psych: pleasant and cooperative
Pt evaluated in ED by (neurology) - recommends LP to evaluate for potential infectious etiology.
Tick born panel ordered.
Procedure consent on the chart for LP.
LP performed successfully after 1 attempt with return of clear fluid. CSF studies ordered by .
Awaiting test results and reassessment
Pt will be admtted for further evaluation and treatment
Critical care statement: A total of 40 minutes of critical care time was provided for this patient. This includes management of unstable vital signs, evaluation of the patient at bedside, reviewing the patient's pertinent medical records, discussion
with consultants, review of old EKGs and review of pertinent medical records. This time with separate from time utilized to perform the aforementioned documented procedures
Discharge Plan
Departure
Patient Disposition: Admit
Date of Disposition: 01/26/25
Time of Disposition: 18:06
Presentation/result/management discussed w/ accepting MD/DO: Hospitalist
Discharge Problem:
Meningitis
Interventions
Interventions:
*Risk Screen - Suicide Last Done: 01/26/25 08:45
*General Assessment Last Done: 01/26/25 08:45
*Neglect/Abuse Screening Last Done: 01/26/25 08:45
*ED- Fall Risk Assessment Last Done: 01/26/25 08:45
*ED COVID-19 Vaccine History Last Done: 01/26/25 08:45
*ED Influenza Vaccine History Last Done: 01/26/25 08:45
*Nursing Disposition Last Done: 01/26/25 22:00
ED- Neurological Assessment Last Done: 01/26/25 11:01
ED-Skin Assessment Last Done: 01/26/25 11:01
Discharge Date and Time
Discharge Date/Time: 01/26/25 22:00
--- NOTE | 2025-01-26 10:30 | PTCARENOTE ---
Addendum entered by Kirstie Bauer RN 01/27/25 05:59:
Pt arrived at 2200, not 1000
Original Note:
Patient is AAO, walkie-talkie, and oriented to her room. Patient was informed that she can only have one visitor at a time with a mask on.
--- NOTE | 2025-01-26 10:52 | CON.NEURO4 ---
Addendum entered and electronically signed by Roland Lobato MD 01/26/25 17:20:
Studies reviewed.
I have personally examined the patient. I reviewed and agree with the MIDDLE SCHOOL TECHNOLOGY TEACHER's Note.
My addenda:
Awake, alert, interactive. No acute distress.
Speech intact.
Follows 2-step requests w/o difficulty. No tremor.
Extra-ocular movements grossly intact.
Facial movements full and symmetric. Hearing intact to normal conversational volume.
Normal UE movements bilaterally.
Neck: full ROM.
Chest: no dyspnea
Heart: no JVD
Ext: (-) Clubbing, (-) Cyanosis, (-) Edema
IMPRESSIONS/RECOMMENDATIONS:
Abrupt onset of fevers followed by recurrent headaches. Differential diagnosis includes based on lumbar puncture already performed that the patient is experiencing aseptic meningitis
Check lumbar puncture, already completed
Provide supportive therapies including antiheadache medications
Check blood work for additional metabolic etiologies
D/W patient
All questions answered.
Will continue to follow patient.
Original Note:
Consultation - Neurology 4
-
CONSULTING PHYSICIAN: Roland Lobato MD
REFERRING PHYSICIAN: Hospitalists/Dr. Mecca MD Resident
DICTATED BY: ELIF Dove
DATE/TIME OF REQUEST: 01/26/25
DATE/TIME OF CONSULTATION: 01/26/25
Reason for Consultation: Headache, fever
History of Present Illness:
This is a 19-year-old right-handed female who has presented to the hospital with report of headache. Patient reports that on 01/17/25 she started having daily fevers. She reports having severe body aches in her joints and down her back but denies
any respiratory symptoms. She went to urgent care on 01/18/25 and was told she had something viral. About four days ago she developed a posterior headache and left neck discomfort. Her headache persisted and became more severe yesterday prompting
her to come to the ER for evaluation. CT head was obtained on 01/25/25 and is negative for any acute abnormalities. She received a migraine cocktail and valproic acid and reports no improvement in her symptoms. She was discharged home and reports
last night having a 103 F temperature. She reports intermittent nausea, phonophobia, photophobia, and hearing an 'ocean sound' in bilateral ears. Due to worsening symptoms she returned to the ER today. She reports going to the [facility] in
October 2024. She denies any rashes or sick exposures. She reports having more mild headaches intermittently since her teens. She denies having migrainous features with previous headaches.
Past Medical History: Iron deficiency anemia.
Surgical History: Denies.
Family History: Reviewed and noncontributory.
Social History: Denies tobacco, alcohol, and illicit drug use.
Allergies: No known allergies.
Home Medications: See below.
Review of Symptoms:
Patient denies any chest pain, shortness of breath, GI or symptoms.
�Per the HPI.�All systems are reviewed negative except above.
Physical Exam:
The patient is febrile, abdomen is nondistended, breathing is unlabored, skin is warm and dry, no edema.
Neurologic Examination:
The patient is awake, alert and oriented x 3. She is able to follow commands and answer questions appropriately. There is no aphasia or dysarthria. On cranial nerve assessment, pupils are 3 mm bilateral, round and reactive to light and
accommodation. Visual story are full. Extraocular movements are intact. Facial sensations are intact and bilaterally symmetrical, there is no facial asymmetry. Hearing is intact bilaterally to normal conversation volume. Tongue palate and uvula are
midline. Sternocleidomastoid strengths are full bilaterally. Motor strengths are 5/5 bilateral upper and lower extremities on medical research [place] scale. There is no drift or involuntary movement noted. Deep tendon reflexes are 2+ bilateral
upper and lower extremities and Babinski is absent bilaterally. Sensations of touch are intact and bilaterally symmetrical. Coordination is intact by finger to nose bilaterally.
Lab Results: See below.
Neuro Imaging:
1. CT Head 01/25/25: No acute intracranial abnormality noted.
Differentials for the patient's presentation include:
1. Persistent headache and fever; uncertain etiology. Need to rule out TRAVEL ACCOMMODATIONS RATER infection, alternative etiologies include intractable migraine in the setting of viral illness.
Patient has the following risk factors for their symptoms: Fever
Recommendations:
-Lumbar puncture pending.
Discussed patient care with: Dr. Lobato, the patient
Vital Signs and Labs
-
Vital Signs and Labs:
Vital Signs
Temp Pulse Resp BP Pulse Ox
98.4 F 94 18 132/88 99
01/26/25 08:45 01/26/25 08:45 01/26/25 08:45 01/26/25 08:45 01/26/25 09:36
Medications
-
Home Medications
�Medication �Instructions �Recorded
No Meds [No Current Medications] 01/26/25
[2025-01-26 11:15] LABS: Hematocrit 35.3 % (37.0-47.0); Hemoglobin 11.3 g/dL (12.0-16.0); Mean Corp Hgb Conc. 32.0 g/dL (33.0-37.0); Mean Corpuscular Volume 84.4 fL (81.0-99.0); Nucleated Red Blood Cells % 0 %; Platelet Count 385 10^3/uL (130-400); Red Cell Dist. Width 14.0 % (11.5-14.5)
[2025-01-26 11:46] LABS: ALT (SGPT) 58 U/L (0-35); AST (SGOT) 23 U/L (14-36); Albumin 4.2 g/dl (3.5-5.0); Alkaline Phosphatase 105 U/L (38-126); Blood Urea Nitrogen 9 mg/dl (7-17); Calcium 9.0 mg/dl (8.4-10.2); Carbon Dioxide 25 mmol/L (22-30); Chloride 107 mmol/L (98-107); Estimated Creatinine Clearance 106 ml/min; Glucose 80 mg/dl (70-99); Potassium 4.1 mmol/L (3.5-5.1); Sodium 142 mmol/L (135-145); Total Protein 7.3 g/dl (6.3-8.2); eGFR > 60.00
[2025-01-26 14:59] LABS: C-Reactive Protein 44.50 mg/L (0.0-10.00)
[2025-01-26 15:41] LABS: Ferritin 113.0 ng/ml (6.24-137)
[2025-01-26 16:13] LABS: Folate > 20.0 ng/ml (2.76-20); Vitamin B12 662 pg/ml (239-931)
[2025-01-26 16:39] LABS: CSF Color Colorless; Red Cell Count/CSF 38 mm^3; White Cell Count/CSF 215 mm^3 (0-5)
[2025-01-26 16:57] LABS: CSF Color Colorless; CSF Tube # Clarity Clear
[2025-01-26 17:06] LABS: Red Cell Count/CSF 40 mm^3
[2025-01-26 17:07] LABS: White Blood Cell Count/CSF 714 mm^3 (0-5)
[2025-01-26 17:38] LABS: Spinal Fluid Granulocytes 6 %; Spinal Fluid Lymphocytes 91 %; Spinal Fluid Macrophages 3 %
[2025-01-26 17:39] LABS: CSF Granulocytes 3 %; Spinal Fluid Macrophages 5 %
[2025-01-26] MEDS: ROCEPHIN 2000 MG IV (18:28)
--- NOTE | 2025-01-26 18:31 | HPS.HSE ---
Family Physician
-
Family Physician: Mary Pond MD
Chief Complaint
-
headache
History of Present Illness
19-year-old female without past medical history presenting to the emergency room yesterday for persistent headache starting 3 days ago. Headache is throbbing and continuous with some fluctuation in intensity. Headache briefly subsides somewhat
with ibuprofen. Headache was present upon waking and today particularly severe and woke her from sleep. She denies any prior history of headaches. She also had fever of 101.7 while on ibuprofen for the past week. She has also been having diffuse
bodyaches. She does have some slight nausea but no vomiting. Also with ringing in the ears and pain behind her eyes in the past 2 days discomfort while moving her eyes quickly. No blurry vision.
She was seen at urgent care a week ago. She also has new onset cough without vomiting sore throat or runny nose. She also has mild neck pain worsening with forward flexion. Denies dizziness or lightheadedness or visual changes or weakness on one
side of the body. She had CT scan of the head in the ER yesterday which was unremarkable. She received migraine cocktail and improved. Magnesium and valproate was given for headache without improvement. She was negative for flu and COVID. She
was discharged.
She hikes occasionally but no known tick bites or rash recently. She has a cat at home. She recently traveled to [facility] on occasion with her family in October. She had multiple mosquito bites 2 weeks ago. No family history of
neurological disorders or migraine.
Medical History
Past Medical History
Past Medical History: Reports None
Past Surgical History: Reports None
Social History
Tobacco: Non-smoker
Alcohol: None
Drug: None
Family History
Family History: Not pertinent
Allergies / Home Medications
Allergies reflects when Allergies were last updated in [facility].
Home Medications with original date entered in [facility]
Allergy/Medication List:
Allergies
Allergy/AdvReac Type Severity Reaction Status Date / Time
No Known Allergies Allergy Verified 01/26/25 08:44
Home Medications
No Meds [No Current Medications] 01/26/25
Review of Systems
-
History Source: Patient
A 12 point ROS was completed and negative except as noted: Yes
Constitutional: Reports No Symptoms
EENT: Reports No Symptoms
Respiratory: Reports No Symptoms
Cardiac: Reports No Symptoms
Abdomen/GI: Reports No Symptoms
: Reports No Symptoms
Musculoskeletal: Reports No Symptoms
Skin: Reports No Symptoms
Neurological: Reports See HPI
Endocrine: Reports No Symptoms
Hematologic/Lymphatic: Reports No Symptoms
Psych: Reports No Symptoms
Physical Exam
Vital Signs
Vital Signs
Temp Pulse Resp BP Pulse Ox
98.6 F 102 20 119/77 99
01/26/25 14:36 01/26/25 14:36 01/26/25 14:36 01/26/25 14:36 01/26/25 14:36
Physical Exam
General: Well Developed, Well Nourished and No Apparent Distress
HEENT: NormoCephalic, Moist mucous membranes and Atraumatic
Respiratory: Clear
Cardiac: S1/S2 and Regular Rhythm; No Murmur or Rub
GI: Soft, Non Tender, Non Distended and Normal Bowel Sounds; No Organomegaly
Rectal: Deferred by Provider
Musculoskeletal: No Clubbing, No Cyanosis and No Edema
Skin: No Rash
Neuro: Nonfocal/grossly intact
Laboratory Results
-
01/26/25 10:51
01/26/25 10:51
Laboratory Results
Total Bilirubin 1.2 mg/dl (0.2-1.3) 01/26/25 10:51
AST 23 U/L (14-36) 01/26/25 10:51
ALT 58 U/L (0-35) H 01/26/25 10:51
Alkaline Phosphatase 105 U/L (38-126) 01/26/25 10:51
Data Reviewed
-
Lab Data: Labs Reviewed by me
Old Records: Reviewed
Impression/Plan
-
IMPRESSION:
PLAN:
# Headache/body ache with neck pain concerning for aseptic meningitis
-CT head yesterday showed no acute intracranial abnormality
-Underwent LP which showed CSF glucose of 39 which is low, WBC of 714, 3% granulocytes, 92% lymphocytes, 5% macrophages overall appears aseptic however with low glucose and high WBC
-CSF cultures pending, meningitis/encephalitis panel pending
-Blood cultures pending
-COVID and flu negative
-Empiric vancomycin/ceftriaxone/ampicillin
-IV fluids
-Tylenol
-ID consulted
-Neurology following
# Cough
- Check chest x-ray
Full code
DVT prophylaxis heparin
Regular diet
[2025-01-26] MEDS: UNASYN IV (19:14)
[2025-01-26] MEDS: VANCOCIN 200 IV (20:08)
[2025-01-26] MEDS: BENADRYL 25 MG IV (21:23)
--- NOTE | 2025-01-26 21:33 | W.PN.UPDATE ---
Update Note
Progress Note Update
RN reports patient having a rash on her chest and head is itchy, started one hour after IV Vancomycin infusion begun. IV Vancomycin is on hold at present. Patient seen and evaluated. patient states her head and forehead itches, mild erythema noted.
No other rash or itchiness noted at present. Denies any chest tightness, tongue, lip swelling, throat tightening, no respiratory symptoms. 100%. HR 101. BP 120/75 RR 16. Benadryl IV 25mg x1. Advised RN to start Vancomycin infusion slow. Discussed
with Attending.
--- NOTE | 2025-01-26 22:58 | PHA.VAN.IN ---
Assessment
- Assessment
Renal Function: Appears similar to baseline
Concomitant Antimicrobials: AMPICILLIN/SULBACTAM
AUC Dosing Plan
- Empiric Dosing
Initial / Loading Dose: VANCO 1000 MG IV ~ 2000
Maintenance Regimen: 1000 MG IV Q12H SLOW INFUSION AT 100ML/HR OR OVER 2 HRS PER PROVIDER
Estimated AUC (mcg*h/mL): 536
Estimated Peak (mcg*h/mL): 33.8
Estimated Trough (mcg/ml): 13.4
Estimated Half Life (H): 7.5
- Monitoring
No levels ordered at this time: Consider levels in next few days
Pharmacokinetics Vancomycin I
- -
Patient Age: 19
Patient Sex: Female
Vancomycin Day #: 1
Indication: Rejected Items Clerk Infection
Requesting Provider: Dr Rj Rodriguez
Height / Weight:
Height 5 ft 3 in
Actual Weight 63.049 kg
Pertinent Past Medical History: Pt back to the ER for ongoing fevers and headache.
- Vital Signs / Lab Results
Temp Pulse Resp BP Pulse Ox
100.1 F 106 20 138/90 99
01/26/25 18:36 01/26/25 18:36 01/26/25 18:36 01/26/25 18:36 01/26/25 18:45
Lab Results - Hematology
01/26/25
10:51
WBC 5.8
Lab Results - Chemistry
01/26/25
10:51
BUN 9
Creatinine 0.7
Estimated Creat Clear 106
Albumin 4.2
Microbiology Results
01/26/25 10:51 Blood Parasites Smear - Final
Blood/Venous
01/26/25 14:00 Meningitis/Encephalitis Panel (PCR) - Final
Csf
01/26/25 13:59 Gram Stain - Preliminary
Csf
01/26/25 14:01 Fungal Culture - Preliminary
Csf Culture in progress.
Positive cultures are reported as soon as detected.
Final report to follow in four to five weeks.
[2025-01-26] MEDS: NSS 1000 IV (23:27)
[2025-01-27 00:02] VITALS: BMI 24.8
[2025-01-27] MEDS: UNASYN IV ×3 (01:12→13:31)
--- NOTE | 2025-01-27 02:32 | DOWNTIME ---
There was a [employer] Downtime on 01/27/2025 from 0100 to 01/27/2025 at 0215. Downtime documentation of patient's care, including medication administrations, has been reconciled in the electronic record per guidelines. Refer to the
patient's paper chart under the miscellaneous tab to see printed paper medication records and downtime forms.
[2025-01-27] MEDS: VANCOCIN 200 IV (05:32)
[2025-01-27 08:00] VITALS: BP 137/86
[2025-01-27 08:28] LABS: Hematocrit 37.2 % (37.0-47.0); Hemoglobin 12.0 g/dL (12.0-16.0); Mean Corp Hgb Conc. 32.3 g/dL (33.0-37.0); Mean Corpuscular Volume 83.4 fL (81.0-99.0); Platelet Count 457 10^3/uL (130-400); Red Cell Dist. Width 13.9 % (11.5-14.5)
--- NOTE | 2025-01-27 08:47 | W.PN.NEURO.1 ---
Addendum entered and electronically signed by Roland Lobato MD 01/27/25 11:50:
Studies reviewed.
I have personally examined the patient. I reviewed and agree with the SHALE PLANER OPERATOR HELPER's Note.
My addenda:
Awake, alert, interactive. No acute distress.
Speech intact.
Follows 2-step requests w/o difficulty. No tremor.
Extra-ocular movements grossly intact.
Facial movements full and symmetric. Hearing intact to normal conversational volume.
Normal UE movements bilaterally.
Neck: full ROM.
Chest: no dyspnea
Heart: no JVD
Ext: (-) Clubbing, (-) Cyanosis, (-) Edema
IMPRESSIONS/RECOMMENDATIONS:
Abrupt onset of neck pain and headache
Found to have significant CSF WBC count with normal protein and glucose as well as normal meningitis panel
Most likely aseptic meningitis
continue supportive care
await CSF results
probably OK to discontinue ABX
check blood work for possible systemic disorder producing constellation of symptoms
D/W patient / family / nursing
All questions answered.
Will continue to follow patient.
Original Note:
Today's Communication / Plan
-
.
Neuro Assessment/Plan
Assessment
IMPRESSIONS/RECOMMENDATIONS:
Abrupt onset of fevers followed by recurrent headaches. Differential diagnosis includes based on lumbar puncture already performed that the patient is experiencing aseptic meningitis
-CSF 01/26/25: WBC 714.
-CT head 01/25/25: No acute intracranial abnormality noted.
Plan
-Treatment recommendations per Infectious disease.
-MRI brain with and w/o contrast pending.
-Provide supportive therapies including antiheadache medications.
Subjective/Objective
Subjective Data
Date of Service: January 27, 2025
No acute events overnight. Patient reports that her headache and neck discomfort that occurred when looking down has now resolved.
Objective Data
Vital Signs
Temp Pulse Resp BP Pulse Ox
98.9 F 81 18 138/81 100
01/26/25 23:08 01/26/25 23:08 01/26/25 23:08 01/26/25 23:08 01/26/25 23:08
Lab Results
01/27/25 07:50
Sodium 142 mmol/L (135-145) 01/26/25 10:51
Potassium 4.1 mmol/L (3.5-5.1) 01/26/25 10:51
BUN 9 mg/dl (7-17) 01/26/25 10:51
Glucose 80 mg/dl (70-99) 01/26/25 10:51
Calcium 9.0 mg/dl (8.4-10.2) 01/26/25 10:51
Vitamin B12 662 pg/ml (239-931) 01/26/25 14:00
Patient Allergies
No Known Allergies Allergy (Verified 01/26/25 08:44)
Review of Systems
-
History Source: Patient
EENT: Negative Blurry Vision, Decreased Vision or Swallowing Difficulty
Respiratory: Cough; Negative Trouble Breathing
Cardiac: Negative Chest Pain or Palpitations
Abdomen/GI: Negative Nausea
Neuro: Negative Dizzy, Headache, Weakness, Numbness, Ataxia, Tremors or Speech Problem
Physical Exam
-
General: Well Developed, Well Nourished and No Apparent Distress
Eyes: No Ptosis and PERRLA
HEENT: Normocephalic and Atraumatic
Neck: Full Range of Motion
Respiratory: No Dyspnea
GI: Non-distended
Extremities: No Clubbing, No Cyanosis and No Edema
Psych: Intact Judgement/Insight and Anxious
Extended Neurological Exam
Mood & Affect: Affect Unremarkable and Anxious
Attention Span & Concentration: Awake, Alert, Interactive and No Difficulty with 2 Step Request
Memory: Unremarkable and Able to Recall
Tremor: Hand Tremor Absent and Head Tremor Absent
Involuntary Movement: None
Speech: Quality Unremarkable, Quantity Unremarkable and Rate of Production Unremarkable
Cranial Nerves III, IV, : Extraocular Movement: Extraocular Movement Full in all Directions
Cranial Nerve VII: Facial Symmetry: Normal Facial Symmetry
Cranial Nerve VIII: Hearing: Unremarkable Hearing to Normal Conversational Volume
Muscle Strength, Overall: Full Throughout
Muscle Bulk & Tone: Bulk Unremarkable and Tone Unremarkable
Gait & Station: Up from Seated Without Problem
Data Reviewed
-
CT Head: Report Reviewed and Image Reviewed
MRI Head: Pending
Medical Test Reports: Report Reviewed (CSF)
Labs: Report Reviewed
Reviewed with: Physician and Patient
Medications
-
Active Medications
Generic Name Dose Route Start Last Admin
Trade Name Freq PRN Reason Stop Dose Admin
Acetaminophen 650 mg 01/26/25 21:57
Acetaminophen 325 Mg Tablet PO 02/23/25 21:56
Q4HPRN PRN
mild pain/OLEARY/temp> 100.4F
Heparin Sodium 5,000 units 01/26/25 21:57 01/27/25 08:38
Heparin 5,000 Units/Ml 1 Ml Vial SC 02/23/25 21:56 Not Given
Q12 IRIS
Ampicillin Sodium/Sulbactam 120 mls @ 240 mls/hr 01/26/25 20:00 01/27/25 08:38
Sodium 3 gm/ Sodium Chloride IV 120 mls
Q6H IRIS Administration
Sodium Chloride 1,000 mls @ 80 mls/hr 01/26/25 21:57 01/26/25 23:27
Nss IV 1,000 mls
.[id number] IRIS Administration
Vancomycin HCl 1 gram in 200 mls @ 100 mls/hr 01/27/25 06:00 01/27/25 05:32
Vancocin IV 200 mls
Q12H IRIS Administration
Protocol
Sodium Chloride 0 flush 01/26/25 19:00
Sodium Chloride 0.9% (Flush) Syringe IV 02/23/25 18:59
PER PROTOCOL IRIS
Home Medications
�Medication �Instructions �Recorded
No Meds [No Current Medications] 01/26/25
[2025-01-27 09:26] LABS: ALT (SGPT) 51 U/L (0-35); AST (SGOT) 21 U/L (14-36); Albumin 4.5 g/dl (3.5-5.0); Alkaline Phosphatase 99 U/L (38-126); Blood Urea Nitrogen 10 mg/dl (7-17); Calcium 9.3 mg/dl (8.4-10.2); Carbon Dioxide 24 mmol/L (22-30); Chloride 108 mmol/L (98-107); Estimated Creatinine Clearance 93 ml/min; Glucose 142 mg/dl (70-99); Potassium 4.4 mmol/L (3.5-5.1); Sodium 144 mmol/L (135-145); Total Protein 7.6 g/dl (6.3-8.2); eGFR > 60.00
[2025-01-27 10:47] LABS: Nucleated Red Blood Cells % 0 %
--- NOTE | 2025-01-27 11:32 | W.PN.UPDATE ---
Update Note
Progress Note Update
I personally performed a history and physical exam of the patient and discussed management with the resident. I reviewed the resident's note and agree with the documented findings and plan of care HPI/CC with the following additions/corrections
CC: headache and neck stiffness
Ms Castellano is a 19 year old female who presented to the ER for a persistent headache which began 3 days prior to arrival. She does not have a history of headaches. This headache awoke her from sleep. It responded to ibuprofen. She also has
noted fever to 101.7 for the past week, diffuse body aches, some nausea but no vomiting. Finally tinitus is noted. She was also seen at urgent care 1 week prior to arrival for cough, mild neck pain with flexion. No sore throat, rhinorrhea or
vomiting.
General: Well Developed, Well Nourished and No Apparent Distress
HEENT: NormoCephalic, Moist mucous membranes and Atraumatic
Respiratory: Clear
Cardiac: S1/S2 and Regular Rhythm; No Murmur or Rub
GI: Soft, Non Tender, Non Distended and Normal Bowel Sounds; No Organomegaly
Rectal: Deferred by Provider
Musculoskeletal: No Clubbing, No Cyanosis and No Edema
Skin: No Rash
Neuro: Nonfocal/grossly intact
CT scan unremarkable
Labs reviewed
She underwent an LP showing:
WBC 714, gluc 39, protein 54, 3% gran, 92% L, 5% macrophages
peripheral glucose was measured 3 hours previously and was 80
meningitis panel negative including HSV/VZV
CSF culture is preliminary no growth
Aseptic Meningitis
- relatively low glucose may have occurred because the comparison level was drawn 3 hour before
- cultures preliminary negative
- no need for further antibiotics - stopped; no need for steroids
- headache management per IM service
- follow up with PCP
AW
[2025-01-27] MEDS: NSS 1000 IV (12:07)
--- NOTE | 2025-01-27 13:56 | W.PN.HOSP.TC ---
Addendum entered and electronically signed by Sharron Avelar MD 01/27/25 19:31:
I saw and evaluated the patient independently. I reviewed and discussed the resident�s note and agree with findings and plan as documented by Dr. Lainez.
GENERAL: well developed, well nourished, female in no apparent distress
HEENT: NC/AT--no nuchal rigidity
HEART: regular rate and rhythm, +S1, +S2
LUNGS : clear to auscultation bilaterally
ABDOM: soft, nontender, nondistended, + bowel sounds
EXT: no cyanosis, clubbing, or edema
NEUROLOGIC: grossly intact
Aseptic meningitis --suspected due to viral source-- LP results indicate WBC 714, RBC 40, predominantly CSF lymphocytes at 92, CSF glucose 39, CSF total protein 54--apprec neuro/ID--abx stopped--meningitis panel negative--lyme pending--CSF cultures
pending--head CT neg--await MRI per neuro
DVT proph--low risk
code status--FULL CODE
Original Note:
Today's Communication/Plan
-
Awaiting results of MRI, follow-up with infectious disease for treatment guidelines
Assessment / Plan
Assessment / Plan
Aseptic meningitis suspected due to viral source:
-Vitals are a stable and patient is afebrile.
-Only complaint on review of systems is mild intermittent diffuse muscle aches and joint pains bilaterally in both the upper and lower extremities.
- Brudzinski sign is negative today on physical exam.
-Significant findings on today's CBC and CMP are a slightly elevated platelet count, and an elevated ESR of 67 and CRP of 44
- Neurology and infectious disease consulted and are both following
- Lumbar puncture performed and CSF shows clear appearance, WBC 714, RBC 40, predominantly CSF lymphocytes at 92, CSF glucose 39, CSF total protein 54, other CSF findings are still pending, immunology of CSF fluid is pending, serology for Lyme
disease and others is still pending
- Findings on lumbar puncture point to a viral etiology, initial meningitis panel to rule out most common viruses and bacteria is negative. Further workup is necessary.
- Head CT and chest x-ray negative for any abnormalities
- Continue the IV ampicillin/sulbactam with vancomycin, will follow-up with infectious disease for further treatment guidelines
- MRI of the brain with and without contrast is pending
- Supportive care with Tylenol as needed for bony aches and pains, will switch to more powerful pain management medication if patient needs, heating pad ordered for pain at site of lumbar puncture
Anticipated Discharge: 24 - 48 hours
Subjective/Interval History
-
Date of Service: January 27, 2025
Patient is a 19-year-old female with no significant past medical history presents to the emergency room yesterday for new onset severe persistent throbbing headache starting since 3 days 3 days. Headache briefly subsides with ibuprofen. She has
had a fever of 101.7 while on ibuprofen for the past week. The pain is associated with diffuse body aches mostly in the knees and elbows, pain with forward flexion of the neck, ringing in the ears, and pain behind her eyes. Recently traveled to
the [facility] [place] with her family in October for vacation. Claims she had multiple mosquito bites. No previous similar clinical history.
Today only medical acute complaint is persistent aching in her knees and elbows and muscles well-controlled on tylenol. Also complaining of mild residual, pinching type of pain felt at the site of lumbar puncture. She does not feel feverish,
chills, no, vomiting, diarrhea, abdominal pain, neck pain, visual changes, headache.
No acute overnight events.
Objective Data
-
Labs:
Laboratory Results
01/27/25
07:50
WBC 7.5
Hgb 12.0
Hct 37.2
Plt Count 457 H
Sodium 144
Potassium 4.4
Chloride 108 H
Carbon Dioxide 24
BUN 10
Creatinine 0.8
Glucose 142 H
Calcium 9.3
Total Bilirubin 1.0
AST 21
ALT 51 H
Alkaline Phosphatase 99
Vital Signs:
Vital Signs
Temp Pulse Resp BP Pulse Ox
98.6 F 111 16 137/86 99
01/27/25 08:00 01/27/25 08:00 01/27/25 08:00 01/27/25 08:00 01/27/25 08:00
I&O
01/26/25 01/27/25 01/28/25
06:59 06:59 06:59
Intake Total 1400 / 1400
Balance 1400 / 1400
Review of Systems
-
All other systems: Reviewed and negative
Constitutional: Denies Fever, Weight Loss, Night Sweats or Chills
EENT: Denies Sore Throat
Respiratory: Denies Cough, Trouble Breathing or Wheezing
Cardiac: Denies Chest Pain, Diaphoresis or Palpitations
Abdomen/GI: Denies Abdominal Pain, Nausea, Vomiting or Diarrhea
Genitourinary: Denies Dysuria, Frequency or Flank Pain
Musculoskeletal: Reports Muscle Pain and Arthralgias
Skin: Denies Itching, Rash or Sores
Hematologic / Lymphatic: Denies Bleeding
Physical Exam
-
General: Well Developed
HEENT: Normocephalic and Atraumatic
Respiratory: Clear to Auscultation
Cardiac: Regular Rhythm and S1/S2
GI: Soft, Nontender, Nondistended and Normal Bowel Sounds
Musculoskeletal: No Clubbing, No Cyanosis and No Edema
Skin: Warm and Dry
Neuro: AO x 3
Data Reviewed
-
CT Scan: Image personally visualized and interpreted and Report Reviewed by me
Labs: Labs Reviewed by me and Discussed with Physician
--- NOTE | 2025-01-27 15:23 | CON.ID ---
Addendum entered and electronically signed by Beba Sanchez MD 01/27/25 15:43:
I personally performed a history and physical exam of the patient and discussed management with the resident. I reviewed the resident's note and agree with the documented findings and plan of care HPI/CC with the following additions/corrections
CC: headache and neck stiffness
Ms Castellano is a 19 year old female who presented to the ER for a persistent headache which began 3 days prior to arrival. She does not have a history of headaches. This headache awoke her from sleep. It responded to ibuprofen. She also has
noted fever to 101.7 for the past week, diffuse body aches, some nausea but no vomiting. Finally tinitus is noted. She was also seen at urgent care 1 week prior to arrival for cough, mild neck pain with flexion. No sore throat, rhinorrhea or
vomiting.
General: Well Developed, Well Nourished and No Apparent Distress
HEENT: NormoCephalic, Moist mucous membranes and Atraumatic
Respiratory: Clear
Cardiac: S1/S2 and Regular Rhythm; No Murmur or Rub
GI: Soft, Non Tender, Non Distended and Normal Bowel Sounds; No Organomegaly
Rectal: Deferred by Provider
Musculoskeletal: No Clubbing, No Cyanosis and No Edema
Skin: No Rash
Neuro: Nonfocal/grossly intact
CT scan unremarkable
Labs reviewed
She underwent an LP showing:
WBC 714, gluc 39, protein 54, 3% gran, 92% L, 5% macrophages
peripheral glucose was measured 3 hours previously and was 80
meningitis panel negative including HSV/VZV
CSF culture is preliminary no growth
Aseptic Meningitis
- relatively low glucose may have occurred because the comparison level was drawn 3 hour before
- cultures preliminary negative
- no need for further antibiotics - stopped; no need for steroids
- headache management per IM service
- follow up with PCP
AW
Original Note:
Consultation
-
Date/Time Consultation Requested: 01/26/2025 at 21:57
Date/Time Consultation Performed: 01/27/2025 at 1:00 PM
Requesting Provider: David De La Rosa MD
Performing Provider: Beba Sanchez
Chief Complaint / Past History
Chief Complaint
Headache for 3 days
History of Present Illness
Patient is a 19-year-old female who presented to the emergency department with headache that started 3 days prior to her presentation. The headache was throbbing, continuous, and fluctuated in intensity. She stated that she used ibuprofen to treat
the headache but it only slightly reduced the headache. The headache was so severe that it woke her from her sleep. She has no past medical history of headaches. She likes to hike but did not notice any tick bites. She has a cat but does not
note any recent scratches or bites. She traveled to the [facility] in October. She had a mosquito bite 2 weeks prior to her presentation. She had a fever 101.7 last week and took ibuprofen to treat it. At that time she had diffuse bodyaches
with nausea but no vomiting. On presentation the emergency department she had ringing in ears, nausea with no vomiting, pain behind the eyes with movement of the eyes. She did not have any blurred vision. All of the symptoms prompted her to
present to the urgent care center nearby and they believe that she was having a viral infection and sent her home. She states that a cough developed but also made mention that she has a tendency to cough when she is nervous or under stress. She
had neck pain on forward flexion. No weakness or lightheadedness. Head CT in the emergency department was negative and she was discharged after being given magnesium and valproic acid along with a migraine cocktail. Unfortunately this did not
resolve her headache and she returned on 26 January.
Past History
Additional Past Medical History:
Iron deficiency anemia
Past Surgical History: None
Allergy History:
No Known Allergies Allergy (Verified 01/26/25 08:44)
Medications Reviewed: Yes
Current Antibiotics:
Allergies
Allergy/AdvReac Type Severity Reaction Status Date / Time
No Known Allergies Allergy Verified 01/26/25 08:44
Home Medications
No Meds [No Current Medications] 01/26/25
Social History
Tobacco: Non-Smoker
Alcohol: None
Drug: None
Personal: Single
Living: With Family
Family History
Family History: Diabetes
Review of Systems
Review of Systems
General: Other
Neurological: Headache (Dull headache that is improving)
All systems: All other systems were reviewed and were negative
Vital Signs
Temp Pulse Resp BP Pulse Ox
98.6 F 111 16 137/86 99
01/27/25 08:00 01/27/25 08:00 01/27/25 08:00 01/27/25 08:00 01/27/25 08:00
Physical Exam
Physical Exam
Constitutional: No Acute Distress, Well Developed and Comfortable
Head: Normocephalic
Eyes: Pupils Equal, Pupils Round and Sclera Anicteric; Negative Erythema
Pharynx: Benign; Negative Erythema
Oral: No Thrush and No Ulcers
Lymph Nodes: Negative Lymphadenopathy
Cardiovascular: Regular Rate and S1/S2; Negative Murmur, Rub, Peripheral Edema or Gallop
Pulmonary: Clear and Non Labored; Negative Wheezes, Rales, Rhonchi or Coarse
Gastrointestinal: Soft, Non Tender, Non Distended and Normal Bowel Sounds
Skin: Warm and Dry; Negative Rash, Jaundice or Ulcers
Neurological: Awake, Alert, Oriented, AO x 3, Normal Gait, Normal Muscle Strength, No Motor Deficits and Tremors; Negative Meningeal Signs
Lab / Diagnostic Study Results
01/27/25 07:50
01/27/25 07:50
Abs Immat Gran (auto) 0.0 10^3/uL (0-0.05) 01/27/25 07:50
Absolute Neuts (auto) 4.9 10^3/uL (1.4-6.5) 01/27/25 07:50
Absolute Lymphs (auto) 1.7 10^3/uL (1.2-3.4) 01/27/25 07:50
Absolute Monos (auto) 0.8 10^3/uL (0.1-0.6) H 01/27/25 07:50
Absolute Basos (auto) 0.0 10^3/uL (0-0.2) 01/27/25 07:50
Immature Gran % 0.5 % (0-0.5) 01/27/25 07:50
Neutrophils % 65.5 % (42.2-75.2) 01/27/25 07:50
Lymphocytes % 22.5 % (20.5-51.1) 01/27/25 07:50
Monocytes % 10.6 % (1.7-9.3) H 01/27/25 07:50
Eosinophils % 0.5 % (0-6) 01/27/25 07:50
Basophils % 0.4 % (0-2) 01/27/25 07:50
ESR 67 mm/hour (0-20) H 01/26/25 14:00
C-Reactive Protein 44.50 mg/L (0.0-10.00) H 01/26/25 14:00
Microbiology Results
Micro:
01/26/25 13:59 Blood Culture - Preliminary
Blood/Venous No Growth in 24 hours- Final report to follow
01/26/25 10:51 Blood Culture - Preliminary
Blood/Venous No Growth in 24 hours- Final report to follow
01/26/25 13:59 CSF Culture - Preliminary
Csf No Growth After 18-24 Hours
Gram Stain - Preliminary
01/26/25 10:51 Blood Parasites Smear - Final
Blood/Venous
01/26/25 14:00 Meningitis/Encephalitis Panel (PCR) - Final
Csf
01/26/25 14:01 Fungal Culture - Preliminary
Csf Culture in progress.
Positive cultures are reported as soon as detected.
Final report to follow in four to five weeks.
01/26/25 14:02 Acid Fast Bacilli Smear - Pending
Csf Acid Fast Bacilli Culture - Pending
Assessment / Plan
A/P:
- Aseptic meningitis: Resolving
Patient presented with acute headache and meningeal signs
CSF drawn was clear in appearance, colorless, white blood cell count of 714, RBCs 40, granulocytes 3, lymphocytes 92, macrophages 5, glucose 39, protein [address] unremarkable
Chest x-ray unremarkable
Meningitis/encephalitis panel PCR negative
CSF culture negative
CSF fungal culture negative
HSV and VZV negative
Blood cultures x 2 negative
CSF with negative cultures and no leukocytosis paints picture of aseptic meningitis
Empiric antibiotics discontinued
ID sign off
[2025-01-27 16:00] VITALS: BP 116/68
--- NOTE | 2025-01-27 16:15 | CM ---
Patient seen at bedside with physicians on . 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 Patient lives with parents and sister- twin. Patient attends [facility] and she has no DME at home. Patient lives with family in 2 story
home. Patient PCP is Dr. Pond and she uses the pharmacy [facility] on . Patient plan is for discharge home with family. CM will continue to follow for dsicharge planning needs.
Plan; home with family supports.
--- NOTE | 2025-01-27 17:51 | PTCARENOTE ---
patient is complaining that she feels intermittent pressure on the top of her head, states she is not in pain but is concerned. MD Lainez notified of change. Per MD, symptoms are signs of residual headache. PRN Tylenol offered to patient and patient
refused at this time. will continue to monitor.
[2025-01-27 23:00] VITALS: BP 117/76
[2025-01-28] MEDS: NSS 1000 IV (01:18)
[2025-01-28 07:11] VITALS: BP 129/80
--- NOTE | 2025-01-28 08:13 | W.PN.UPDATE ---
Update Note
Progress Note Update
This patient DOES NOT NEED airborne isolation.
--- NOTE | 2025-01-28 09:59 | W.PN.UPDATE ---
Update Note
Progress Note Update
I saw and evaluated the patient. I reviewed the resident�s note and agree with findings and plan as documented in the resident�s note with the following comments:
Subjective:
only complaint is anxiety, desire to leave
Objective:
General: Well Developed, Well Nourished and No Apparent Distress
Respiratory: Clear to auscultation bilaterally
Cardiac: S1/S2 and Regular Rhythm; No Murmur or Rub
GI: Soft, Non Tender, Non Distended and Normal Bowel Sounds; No Organomegaly
Rectal: Deferred by Provider
Musculoskeletal: No Clubbing, No Cyanosis and No Edema
Skin: No Rash
Neuro: no photophobia, neck is supple
A&P
Aseptic Meningitis
- relatively low glucose may have occurred because the comparison level was drawn 3 hour before
- cultures remain preliminary negative
- no need for further antibiotics - stopped; no need for steroids
- headache management per IM service
- follow up with PCP
AW
[2025-01-28 10:50] LABS: Hematocrit 34.4 % (37.0-47.0); Hemoglobin 11.6 g/dL (12.0-16.0); Mean Corp Hgb Conc. 33.7 g/dL (33.0-37.0); Mean Corpuscular Volume 80.4 fL (81.0-99.0); Platelet Count 503 10^3/uL (130-400); Red Cell Dist. Width 13.9 % (11.5-14.5)
--- NOTE | 2025-01-28 10:50 | W.PN.ID1 ---
Addendum entered and electronically signed by Beba Sanchez MD 01/28/25 12:11:
I saw and evaluated the patient. I reviewed the resident�s note and agree with findings and plan as documented in the resident�s note with the following comments:
Subjective:
only complaint is anxiety, desire to leave
Objective:
General: Well Developed, Well Nourished and No Apparent Distress
Respiratory: Clear to auscultation bilaterally
Cardiac: S1/S2 and Regular Rhythm; No Murmur or Rub
GI: Soft, Non Tender, Non Distended and Normal Bowel Sounds; No Organomegaly
Rectal: Deferred by Provider
Musculoskeletal: No Clubbing, No Cyanosis and No Edema
Skin: No Rash
Neuro: no photophobia, neck is supple
A&P
Aseptic Meningitis
- relatively low glucose may have occurred because the comparison level was drawn 3 hour before
- cultures remain preliminary negative
- no need for further antibiotics - stopped; no need for steroids
- headache management per IM service
- follow up with PCP
AW
Original Note:
Date of Service
Date of Service: January 28, 2025
Met with patient at the bedside. She is calm and pleasant in discussion. She remains anxious about her condition and is unsure if she will recover as she hopes. She does not have any signs of meningeal irritation or neurological deficits. She
has occasional dull headaches that are improving as time goes on.
Today's Communication
Antibiotics discontinued
Follow clinically
Assessment / Plan
A/P:
- Aseptic meningitis: Resolving
Patient presented with acute headache and meningeal signs
CSF drawn was clear in appearance, colorless, white blood cell count of 714, RBCs 40, granulocytes 3, lymphocytes 92, macrophages 5, glucose 39, protein [address] unremarkable
Chest x-ray unremarkable
Meningitis/encephalitis panel PCR negative
CSF culture negative
CSF fungal culture negative
HSV and VZV negative
Blood cultures x 2 negative
CSF with negative cultures and no leukocytosis paints picture of aseptic meningitis
Antibiotics discontinued
Follow clinically
Subjective / Review of Systems
Review of Systems: No Fever, No Chills, Headache (Intermittent, dull), No Pharyngitis, No Stiff Neck, Cough (Associated with anxiety), No Sputum Production, No Chest Pain, No Palpitations, No Abdominal Pain, No Nausea, No Vomiting, No Diarrhea, No
Dysuria, No Joint Pain and No Skin Rash
Vital Signs / Physical Exam
Vital Signs
Vital Signs
Temp Pulse Resp BP Pulse Ox
98.9 F 75 14 129/80 100
01/28/25 07:11 01/27/25 23:00 01/28/25 07:11 01/28/25 07:11 01/28/25 07:11
Physical Exam
Constitutional: No Acute Distress, Well Developed and Comfortable
Head: Normocephalic
Eyes: Pupils Equal, Pupils Round and Sclera Anicteric; Negative Erythema or Ocular Discharge
Oropharyngeal: Benign; Negative Erythema, Exudate, Thrush or Ulcers
Cardiovascular: Regular Rate and S1/S2; Negative Murmur, Rub, Peripheral Edema or Gallop
Pulmonary: Clear, Symmetric and Non Labored; Negative Wheezes, Rales, Rhonchi or Coarse
Gastrointestinal: Soft, Non Tender, Non Distended, Normal Bowel Sounds, No Rebound and No Guarding
Extremities: Negative Edema, Clubbing, Cyanosis, Erythema or Splinter Hemorrhage
Skin: Warm and Dry; Negative Rash, Jaundice or Ulcers
Wound: None
Neurological: Awake, Alert, Oriented, AO x 3 and Normal Gait
Psychological: Other (Anxiety)
Objective Data
Lab Data
Lab Results
01/28/25 08:59
ESR 67 mm/hour (0-20) H 01/26/25 14:00
Estimated Creat Clear 93 ml/min 01/27/25 07:50
Total Bilirubin 1.0 mg/dl (0.2-1.3) 01/27/25 07:50
AST 21 U/L (14-36) 01/27/25 07:50
ALT 51 U/L (0-35) H 01/27/25 07:50
Alkaline Phosphatase 99 U/L (38-126) 01/27/25 07:50
C-Reactive Protein 44.50 mg/L (0.0-10.00) H 01/26/25 14:00
Most recent labs reviewed.
Micro Results:
01/26/25 13:59 Blood Culture - Preliminary
Blood/Venous No Growth in 24 hours- Final report to follow
01/26/25 10:51 Blood Culture - Preliminary
Blood/Venous No Growth in 24 hours- Final report to follow
01/26/25 13:59 CSF Culture - Preliminary
Csf No Growth After 18-24 Hours
Gram Stain - Preliminary
01/26/25 10:51 Blood Parasites Smear - Final
Blood/Venous
01/26/25 14:00 Meningitis/Encephalitis Panel (PCR) - Final
Csf
01/26/25 14:01 Fungal Culture - Preliminary
Csf Culture in progress.
Positive cultures are reported as soon as detected.
Final report to follow in four to five weeks.
01/26/25 14:02 Acid Fast Bacilli Smear - Pending
Csf Acid Fast Bacilli Culture - Pending
[2025-01-28 10:52] LABS: ALT (SGPT) 58 U/L (0-35); AST (SGOT) 33 U/L (14-36); Albumin 4.2 g/dl (3.5-5.0); Alkaline Phosphatase 88 U/L (38-126); Blood Urea Nitrogen 8 mg/dl (7-17); Calcium 9.3 mg/dl (8.4-10.2); Carbon Dioxide 25 mmol/L (22-30); Chloride 109 mmol/L (98-107); Estimated Creatinine Clearance 106 ml/min; Glucose 89 mg/dl (70-99); Magnesium 2.1 mg/dl (1.6-2.3); Potassium 4.4 mmol/L (3.5-5.1); Sodium 139 mmol/L (135-145); Total Protein 7.5 g/dl (6.3-8.2); eGFR > 60.00
--- NOTE | 2025-01-28 11:42 | W.PN.HOSP.TC ---
Addendum entered and electronically signed by Sharron Avelar MD 01/28/25 16:03:
I saw and evaluated the patient independently. I reviewed and discussed the resident�s note and agree with findings and plan as documented by Dr. Lainez.
GENERAL: well developed, well nourished, female in no apparent distress
HEENT: NC/AT--no nuchal rigidity
HEART: regular rate and rhythm, +S1, +S2
LUNGS : clear to auscultation bilaterally
ABDOM: soft, nontender, nondistended, + bowel sounds
EXT: no cyanosis, clubbing, or edema
NEUROLOGIC: grossly intact
Aseptic meningitis --suspected due to viral source-- LP results indicate WBC 714, RBC 40, predominantly CSF lymphocytes at 92, CSF glucose 39, CSF total protein 54--apprec neuro/ID--abx stopped--meningitis panel negative--lyme pending--CSF cultures
pending--head CT neg--MRI normal
DVT proph--low risk
code status--FULL CODE
OK for d/c
Original Note:
Today's Communication/Plan
-
- mri pending
Assessment / Plan
Assessment / Plan
Aseptic meningitis suspected due to viral source:
-Vitals are a stable and patient is afebrile.
- No complaints on review of systems
- Brudzinski sign is negative today on physical exam.
-Significant findings on today's CBC and CMP are a slightly elevated platelet count, and an elevated ESR of 67 and CRP of 44
- Neurology and infectious disease consulted and are both following
- Lumbar puncture performed and CSF shows clear appearance, WBC 714, RBC 40, predominantly CSF lymphocytes at 92, CSF glucose 39, CSF total protein 54, other CSF findings are still pending, immunology of CSF fluid is pending, serology for Lyme
disease and others is still pending
- Findings on lumbar puncture point to a viral etiology, initial meningitis panel to rule out most common viruses and bacteria is negative. Further workup is necessary.
- Head CT and chest x-ray negative for any abnormalities
- Infectious disease confirmed the discontinuation of antibiotics as they believe this is most likely viral in origin
- Patient does not need airborne precautions as she does not have contagious disease that spreads through air
- MRI of the brain with and without contrast is pending
- Supportive care with Tylenol as needed for bony aches and pains, will switch to more powerful pain management medication if patient needs, heating pad ordered for pain at site of lumbar puncture
- follow up with PCP and infectious disease in 5 days.
Anticipated Discharge: 24 - 48 hours
Subjective/Interval History
-
Date of Service: January 28, 2025
No acute overnight events
No acute medical complaints
Objective Data
-
Labs:
Laboratory Results
01/28/25
08:59
WBC 5.5
Hgb 11.6 L
Hct 34.4 L
Plt Count 503 H
Sodium 139
Potassium 4.4
Chloride 109 H
Carbon Dioxide 25
BUN 8
Creatinine 0.7
Glucose 89
Calcium 9.3
Total Bilirubin 1.4 H
AST 33
ALT 58 H
Alkaline Phosphatase 88
Vital Signs:
Vital Signs
Temp Pulse Resp BP Pulse Ox
98.9 F 75 14 129/80 100
01/28/25 07:11 01/27/25 23:00 01/28/25 07:11 01/28/25 07:11 01/28/25 07:11
I&O
01/27/25 01/28/25 01/29/25
06:59 06:59 06:59
Intake Total 1400 / 1400 2160 / 2160
Balance 1400 / 1400 0 / 2160
Review of Systems
-
All other systems: Reviewed and negative
Constitutional: Denies Fever, Weight Loss, Night Sweats or Chills
EENT: Denies Sore Throat
Respiratory: Denies Cough, Trouble Breathing or Wheezing
Cardiac: Denies Chest Pain, Diaphoresis or Palpitations
Abdomen/GI: Denies Abdominal Pain, Nausea, Vomiting or Diarrhea
Genitourinary: Denies Dysuria, Frequency or Flank Pain
Musculoskeletal: Denies Muscle Pain or Arthralgias
Skin: Denies Itching, Rash or Sores
Hematologic / Lymphatic: Denies Bleeding
Physical Exam
-
General: Well Developed
HEENT: Normocephalic and Atraumatic
Respiratory: Clear to Auscultation
Cardiac: Regular Rhythm and S1/S2
GI: Soft, Nontender, Nondistended and Normal Bowel Sounds
Musculoskeletal: No Clubbing, No Cyanosis and No Edema
Skin: Warm and Dry
Neuro: AO x 3
[2025-01-28] MEDS: ATIVAN 1 MG PO (12:06)
[2025-01-28 12:19] LABS: Nucleated Red Blood Cells % 0 %
--- NOTE | 2025-01-28 13:59 | W.PN.NEURO.1 ---
Today's Communication / Plan
-
-Treatment recommendations per Infectious disease.
-Provide supportive therapies including antiheadache medications.
Neuro Assessment/Plan
Assessment
IMPRESSIONS/RECOMMENDATIONS:
Abrupt onset of fevers followed by recurrent headaches. Differential diagnosis includes based on lumbar puncture already performed that the patient is experiencing aseptic meningitis
-CSF 01/26/25: WBC 714.
-CT head 01/25/25: No acute intracranial abnormality noted.
MRI of brain fails to demonstrate significant abnormality to my review
Plan
-Treatment recommendations per Infectious disease.
-Provide supportive therapies including antiheadache medications.
Will follow as needed
Subjective/Objective
Subjective Data
Date of Service: January 28, 2025
Objective Data
Vital Signs
Temp Pulse Resp BP Pulse Ox
37.2 C 75 14 129/80 100
01/28/25 07:11 01/27/25 23:00 01/28/25 07:11 01/28/25 07:11 01/28/25 07:11
Lab Results
01/28/25 08:59
01/28/25 08:59
Sodium 139 mmol/L (135-145) 01/28/25 08:59
Potassium 4.4 mmol/L (3.5-5.1) 01/28/25 08:59
BUN 8 mg/dl (7-17) 01/28/25 08:59
Glucose 89 mg/dl (70-99) 01/28/25 08:59
Calcium 9.3 mg/dl (8.4-10.2) 01/28/25 08:59
Vitamin B12 662 pg/ml (239-931) 01/26/25 14:00
Patient Allergies
No Known Allergies Allergy (Verified 01/26/25 08:44)
Data Reviewed
-
MRI Head: Image Reviewed
Labs: Report Reviewed
Reviewed with: Physician
Old Records: Summarized
Past History
Past History
ED Past Medical History: Other (Aseptic meningitis) and Other (MEG)
ED Past Surgical History: None
Social History
Tobacco: Non-smoker
Alcohol: None
Drug: None
Personal: Single
Family History
Family History: Diabetes
Medications
-
Medications:
Generic Name Dose Route Start Last Admin
Trade Name Freq PRN Reason Stop Dose Admin
Acetaminophen 650 mg 01/26/25 21:57
Acetaminophen 325 Mg Tablet PO 02/23/25 21:56
Q4HPRN PRN
mild pain/OLEARY/temp> 100.4F
Heparin Sodium 5,000 units 01/26/25 21:57 01/28/25 08:32
Heparin 5,000 Units/Ml 1 Ml Vial SC 02/23/25 21:56 Not Given
Q12 IRIS
Lorazepam 1 mg 01/27/25 13:21 01/28/25 12:06
Lorazepam 1 Mg Tablet PO 02/24/25 13:20 1 mg
ONCE PRN PRN Administration
1 hour prior for MRI
Lorazepam 0.25 mg 01/27/25 19:02
Lorazepam 0.5 Mg Tablet PO 02/24/25 19:01
DAILYPRN PRN
anxiety
Sodium Chloride 0 flush 01/26/25 19:00
Sodium Chloride 0.9% (Flush) Syringe IV 02/23/25 18:59
PER PROTOCOL IRIS
[2025-01-28 14:14] VITALS: BP 125/84
[2025-01-28 15:04] LABS: Lyme Antibody Screen, EIA Negative (Negative)
--- NOTE | 2025-01-28 15:30 | CM ---
Patient seen at bedside with physician and patient friend. Patient is for discharge home with friend to transport her. Patient with no needs for VN at this time. CM will continue to follow for discharge planning needs.
Plan; home with no needs
--- NOTE | 2025-01-28 19:29 | W.DCSUMMARY ---
Addendum entered and electronically signed by Sharron Avelar MD 01/28/25 20:05:
Read, reviewed, and agree. See same day progress note for additional details. Time spent coordinating care, DC planning, review of DC plan of care with resident, transition of care, review of records in EMR, med rec, consults, notes, d/w
consultants, nursing, family, and CM = 25 minutes
Pending tests include Lyme, IgG, myeloperoxidase antibody, peroxidase antibody, multiple sclerosis interpretation, etc.
Original Note:
Discharge Summary
Discharge Data
Date of Admission: 01/26/25
Date of Discharge: 01/28/25
-
Pending Results: Yes
Hospital Course
Discharging Physician : Dr. Sharron Avelar and Dr. Ammon Lainez
Disposition : Home
Primary care physician : Dr. Mary Pond
Principal Discharge diagnosis : Aseptic meningitis from viral source
Chronic Discharge diagnosis :
Hospital Course : Patient is a 19-year-old female with no significant past medical history presents to the emergency room on 01/25/2025 for new onset severe persistent throbbing headache starting since 3 days not improving on migraine cocktail.
Problem #1: Aseptic meningitis suspected due to viral source
Patient presented with severe persistent throbbing headache with a fever (which subsided before ED visit ) since 3 days not improving on migraine cocktail in the ED. Head CT and chest x-ray were both negative for any abnormal findings. Brezinski
sign was positive on physical examination. Neurology and infectious disease both consulted. IV empiric vancomycin/ceftriaxone/ampicillin started. IV fluids administered. lumbar puncture performed and CSF shows clear appearance, WBC 714, RBC 40,
predominantly CSF lymphocytes at 92, CSF glucose 39, CSF total protein 54, other CSF findings are still pending, immunology of CSF fluid is pending, serology for Lyme disease and others is still pending. Findings on lumbar puncture point to a viral
etiology, initial meningitis panel to rule out most common viruses and bacteria is negative. Further workup is necessary for other viral causes. Discontinued on antibiotics after infectious disease agreed this is a viral cause. Patient was taken
off airborne precautions after we confirmed this is likely viral in origin. MRI of the brain with and without contrast ordered by neuro was negative for any intracranial abnormalities. Tylenol given for residual pain from the lumbar puncture which
controlled the pain. On discharge patient is stable, afebrile, no fever/nausea/vomiting/diarrhea/abdominal pain/visual disturbances/muscle aches/headache/neck pain . follow-up with PCP and infectious disease within 7 days.
Important imaging findings :
Brain MRI on 01/28/2025:
FINDINGS:
No abnormal parenchymal signal intensity is identified. The ventricles and sulci are normal in size and configuration. No mass effect, midline shift, or extra axial collection. No abnormal parenchymal or meningeal enhancement. No abnormal signal
intensity on diffusion-weighted images.
The vascular flow voids at the skull base are unremarkable, as far as visualized.
2.1 cm mucous retention cyst in the right maxillary sinus. The mastoid air cells are clear.
IMPRESSION:
No acute intracranial abnormality.
Procedure findings :
Discharge Plan
-
Patient Disposition: Home (Routine Discharge)
Discharge Diagnosis/Procedures: Aseptic meningitis due to viral cause
Condition: Good
Diet: No restrictions
Activity: As tolerated
Driving Restrictions: Not until seen by your Dr
Bathing Restrictions: None
Blood Work: CBC and CMP in 1 week with PCP
Instructions: Aseptic Meningitis (DC)
Referrals:
Beba Sanchez MD [Active, Infectious Diseases] - in less than 1 week
Mary Pond MD [Family Provider, Family Practice] - in less than 1 week
Prescriptions:
No Action
No Current Medications
0
Discharge Orders:
Discharge Patient (As Directed); Ordered 01/28/25
Ordered By: Sharron Avelar
Discharge Date and Time
Discharge Date/Time: 01/28/25 15:52
Print Language: GEORGIAN
[2025-01-28 22:21] LABS: C.neoformans Antigen Negative (Negative)
[2025-01-29 03:47] LABS: ANA, IgG Reflex to HEp-2 None Detected (None Detected)
[2025-01-29 11:31] LABS: Serine Protease-3, IgG 1 AU/mL (0-19)
[2025-01-29 16:22] LABS: CSF VDRL (T. pallidum) Non Reactive (Non Reactive)
[2025-01-29 22:48] LABS: Albumin, CSF 26 mg/dL (0-35); Albumin, Serum 3411 mg/dL (3500-5200); IgG, CSF 4.3 mg/dL (0.0-6.0)
== END 2025-01-28 15:52 | disposition home or self-care (01) | DRG 99 ==
LOC: 4 WEST ACU 18:33
PROVIDERS: ADMITTING PHYSICIAN Hospitalist; ATTENDING PHYSICIAN Internal Medicine; CONSULT PHYSICIAN Psychiatry & Neurology Neurology; CONSULT PHYSICIAN Student in an Organized Health Care Education/Training Program; EMERGENCY PHYSICIAN Emergency Medicine; FAMILY PHYSICIAN Family Medicine
DX: G03.0 Nonpyogenic meningitis (principal)
CPT/HCPCS: 62270; 70553; 71046; 80053; 82040; 82042; 82607; 82728; 82746; 82784; 82945; 83516; 83735; 83873; 83916; 84157; 85025; 85652; 86038; 86140; 86592; 86618; 87015; 87040; 87070; 87102; 87116; 87205; 87207; 87327; 87468; 87476; 87483; 87484; 87798; 89051; 96365; 96367; 96375; 99285; A9575